=== PATIENT | female | born 1960 | race Caucasian/White ===

== ENCOUNTER 2019-12-21 00:34 | Observation (INO) | payer OTHER, SELFPAY ==
[2019-12-21] VITALS (15 sets, daily range): BP systolic 97–139; BP diastolic 45–70; PULSE 54–116; RESP 11–20; TEMP 36.1–36.8; O2SAT 98–100; BMI 24.3; BMI 23.8
--- NOTE | ~2019-12-21 | XR_ITS ---
EXAMINATION: XR fluoroscopy no charge DATE: 12/21/2019 13:15 INDICATION: Right ureteral stone. TECHNIQUE: 3 intraoperative fluoroscopic views of the abdomen and pelvis were obtained. I was not pre sent. Fluoroscopy exposure time was 17 seconds. COMPARISON: CT abdomen and pelvis 12/21/2019 FINDINGS: There are no dilated loops of bowel. There is no visible urolithiasis. IMPRESSION: 1. No visible urolithiasis. Reviewed, dictated and finalized at location A. IMPRESSION: 1. No visible urolithiasis.
--- NOTE | ~2019-12-21 | CT_ITS ---
EXAMINATION: CT abdomen pelvis wo con EXAM DATE: 12/21/2019 01:12 INDICATION: Right flank pain, 4 days. Nausea. Hematuria. History kidney stones. TECHNIQUE: Spiral CT of the abdomen and pelvis was performed without contrast. Axial, coronal and sag ittal images were reviewed. The dose-length product (DLP) for this examination was 171.51 mGy-cm. T he exposure was tailored according to patient size (auto mA exposure control), and iterative reconstr uction (ASIR) was used as additional dose reduction technique. Comparison is made to prior examinatio n from 02/25/2007. FINDINGS: There is a 5 mm stone in the distal aspect of the right ureter with mild right-sided obstru ctive nephropathy. There is a punctate stone within each kidney. The uterus is anteverted and morpho logically normal. The bladder is undistended at time of imaging. The liver, spleen, adrenal glands and pancreas are unremarkable. Gallbladder is unremarkable. No biliary obstruction. There is no r etroperitoneal or pelvic lymphadenopathy. The appendix is normal. There is mild sigmoid colonic diverticulosis. There is no adjacent inflammat ory change to suggest diverticulitis. There is small to moderate-sized gastroesophageal hiatal hernia . There is expected amount of colonic stool. No free intraperitoneal gas. The heart is normal in size. There are no pericardial or pleural effusions. The lung bases are unremarkable. Chronic rig ht L5 spondylolysis with 3 mm anterolisthesis L5 on S1. There are no osteoblastic or osteolytic lesio ns identified. IMPRESSION: 1. Right distal ureteral 5 mm stone, mild obstructive nephropathy. 2. Punctate bilateral nephrolithiasis. 3. Mild colonic diverticulosis. 4. Small to moderate hiatal hernia. Reviewed, dictated and finalized at location A.
--- NOTE | 2019-12-21 00:51 | ED.ABDPAIN ---
HPI - Abdominal Pain General Chief Complaint: Abdominal Pain Stated Complaint: abd pain Time Seen by Provider: 12/21/19 00:50 History of Present Illness HPI narrative: Right flank/RLQ pain for a few days. Worsening in severity. Now radiating to the back as well. Associated with dysuria, frequency, nausea. She has had past kidney stones. This is similar, but not exactly the same. She sees Dr. Merritt. Related Data Home Medications Medication Instructions Recorded Confirmed cyclosporine [Restasis] OPHTHALMIC (EYE) BID 12/21/19 gabapentin 300 mg PO HS 12/21/19 Allergies Allergy/AdvReac Type Severity Reaction Status Date / Time grass pollen Allergy Unknown Itching Verified 12/21/19 03:14 house dust Allergy Unknown Itching Verified 12/21/19 03:14 No Known Allergies Allergy Verified 12/21/19 03:14 Review of Systems Review of Systems: All systems reviewed & are unremarkable except as noted in HPI and below Constitutional: Constitutional: Denies chills and Denies fever(s) Cardiovascular: Cardiovascular: Denies chest pain Respiratory: Respiratory: Denies dyspnea Gastrointestinal: Gastrointestinal: Reports abdominal pain, Denies constipation, Denies diarrhea, Reports nausea and Denies vomiting Genitourinary: Genitourinary: Reports nocturia, Reports dysuria and Reports flank pain Musculoskeletal: Musculoskeletal: Reports back pain Neurologic: Denies dizziness and Denies weakness [facility] Family History Family History Other Carcinoma of colon Family history of hypercholesterolemia Family history of kidney disease Family history of lung cancer Family history of malignant neoplasm Family history of osteoporosis Social History Social History Smoking status: Never smoker Alcohol intake: current Gender identity (if verbalized by the patient): Female Exam Const: General: healthy appearing, no acute distress and alert Orientation/consciousness: patient oriented x3 HENMT: Head: normal to inspection Neck: Neck: normal visual inspection and no lymphadenopathy Chest: Chest palpation & inspection: no tenderness Resp: Effort & Inspection: normal respiratory effort Auscultation: clear to auscultation bilaterally, no rales, no rhonchi and no wheezes Cardio: Jugular venous distension: no JVD Rate: regular rate Rhythm: regular rhythm Heart sounds: no murmurs GI: Inspection: non-distended GI Palp: Yes Soft to palpation : General: Yes Bladder palpation abnormal tender Skin: General skin exam: normal color Neuro: General: patient oriented x3 and moves all extremities Speech: normal speech Extrem: General: no edema Psych: Appearance: well kempt Affect: normal affect Course Vital Signs Vital signs: Vital Signs Temperature 36.3 C L 12/21/19 00:35 Pulse Rate 79 12/21/19 00:35 Respiratory Rate 19 12/21/19 00:35 Blood Pressure 139/65 12/21/19 00:35 Pulse Oximetry 100 12/21/19 00:35 Temperature 36.3 C L 12/21/19 00:35 Pulse Rate 60 12/21/19 03:00 Respiratory Rate 16 12/21/19 03:00 Blood Pressure 120/69 12/21/19 03:00 Pulse Oximetry 100 12/21/19 03:00 MDM - Abdominal Pain MDM Narrative Medical decision making narrative: She has obstructing stone on the right with infection. Case discussed with Dr. Merritt. He will admit and possibly take to the OR tomorrow. Medical Records Attestation: I reviewed the patient's medical records. Lab Data Attestation: I reviewed the patient's lab results. Result diagrams: 12/21/19 00:56 12/21/19 00:56 Labs: Lab Results 12/21/19 12/21/19 12/21/19 Range/Units 00:56 00:56 00:56 WBC 11.0 H (4.5-10.0) K/mm3 RBC 4.80 (4.2-5.4) M/mm3 Hgb 14.0 (12.0-15.0) g/dL Hct 42.4 (37.0-47.0) % MCV 88.3 (80-100) fl MCH 29.2 (26-34) pg MCHC 33.0 (32-36) g/
[2019-12-21 01:09] LABS: Basophils Absolute Auto 0.1 K/mm3 (0.0-0.1); Basophils Percent Auto 0.5 % (0.2-1.2); Eosinophils Absolute Auto 0.3 K/mm3 (0-0.3); Eosinophils Percent Auto 2.8 % (0-4.4); Hematocrit 42.4 % (37.0-47.0); Immature Granulocyte Absolute 0.04 K/mm3 (0.00-0.031); Immature Granulocyte Percent A 0.4 % (0-0.5); Lymphocytes Absolute Auto 1.81 K/mm3 (0.9-3.2); Lymphocytes Percent Auto 16.4 % (18.3-44.2); Mean Corpuscular Hemoglobin 29.2 pg (26-34); Mean Corpuscular Volume 88.3 fl (80-100); Mean Platelet Volume 10.3 fl (7.4-10.4); Monocytes Absolute Auto 1.1 K/mm3 (0.1-0.6); Monocytes Percent Auto 9.7 % (2.6-8.5); Neutrophils Absolute Auto 7.7 K/mm3 (1.3-6.7); Neutrophils Percent Auto 70.2 % (45.5-73.1); Platelet Count Result 306 k/mm3 (150-375); Red Cell Distribution Width 13.2 % (11.5-14.5)
[2019-12-21 01:19] LABS: Alanine Aminotransferase 15 U/L (4-35); Alkaline Phosphatase 77 U/L (38-126); Anion Gap 10.7 mmol/L (7-16); Aspartate Amino Transferase 22 U/L (14-36); Bilirubin,Total 0.4 mg/dL (0.2-1.3); Blood Urea Nitrogen 11 mg/dL (7-17); Calcium 8.7 mg/dL (8.4-10.2); Carbon Dioxide 25 mmol/L (22-30); Chloride 105 mmol/L (98-107); Estimated CRCL calculation 45 ml/min; Estimated Glomerular Filt Rate 56; Glucose 99 mg/dL (65-105); Lipase 115 U/L (23-300); Potassium 3.7 mmol/L (3.4-5.0); Sodium 137 mmol/L (137-145)
[2019-12-21] MEDS: SODIUM CHLORIDE 0.9% IV 1,000 ML 999 ML IV CONT (01:22)
[2019-12-21] MEDS: ONDANSETRON INJ 4 MG/2 ML VIAL IV PUSH ×2 (01:22→15:16)
[2019-12-21 01:37] LABS: Add Urine Microscopic? YES; Appearance Urine Clear (Clear); Bilirubin Urine Negative (Negative); Blood Urine Negative (Negative); Calcium Oxalate Crystals Urine Present /hpf; Color Urine Amber (Yellow); Glucose Urine UA Negative (Negative); Ketones Urine Negative (Negative); Leukocyte Esterase Ur Trace LEU/UL (Negative); Mucus Urine Rare /lpf; Nitrate Urine Positive (Negative); Protein Urine 2+ mg/dL (Negative); RBC Urine 0-2 /hpf (0-2); Specific Grav Ur 1.024 (1.001-1.035); Squamous Epithelial Cell Urine Moderate /hpf (Few); WBC Urine 51-75 /hpf
--- NOTE | 2019-12-21 04:23 | ADMGEN ---
This patient, Misty Hayward, was admitted to 3 [facility] Surg Room 319-01. Patient/family oriented to hospital policies and general routines including ID bracelet, bed and alarms, visiting hours, pain management, procedures, bathroom and other care routines, personal items, smoking policy, room service/diet, and visiting hours. Valuables list has been completed. Information on how to activate the Rapid Response Team has been discussed. Patient/Family are encouraged to report perceived risks to care and to ask questions if they do not understand what they are told or what they should do.
[2019-12-21] MEDS: LACTATED RINGERS 1,000 ML 150 ML IV CONT ×3 (04:43→21:09)
--- NOTE | 2019-12-21 09:39 | WPDURCON ---
Assessment and Plan Assessment and plan (1) Hydronephrosis with urinary obstruction due to ureteral calculus: Code(s): N13.2 - Hydronephrosis with renal and ureteral calculous obstruction Status: Acute Assessment and Plan: Keep NPO. Obtain Consent: CYstoscopy, right ureteroscopy with stent placement, possible stone extraction, retrograde pyelogram, possible holmium laser. Go to OR this afternoon. Will likely just place stent d/t UTI, then have a ureteroscopy with stone extraction in a few weeks once infection is cleared. (2) UTI (urinary tract infection): Code(s): N39.0 - Urinary tract infection, site not specified Status: Acute Assessment and Plan: Continue IV antibiotics, tailor to urine culture. Urology Consult Note HPI Date Seen: 12/21/19 Requesting Physician: Enmanuel Merritt MD Primary Care Provider: Don Reina MD Consult Narrative Narrative: Misty Hayward is a 59 year old female who presented to the ER early this morning with worsening right lower quadrant pain, and right flank pain. She also reports having nausea, urinary frequency and tea colored urine, since Thursday evening. She denies dysuria, gross hematuria or fever/chills. She made an appointment with her PCP yesterday and thought she had a UTI, but the pain got more severe last night landing her in the ER. She has a WBC of 11.0 and creatinine of 1.00. Her UA is positive for nitrites and her culture is pending. She is afebrile at this time. She has a history of kidney stones and was treated with an ESWL by Dr. Merritt in the past. Her CT scan shows a right distal 5mm stone as well as punctate bilateral renal stones. Review of Systems Cardiovascular: Cardiovascular: Denies chest pain Respiratory: Respiratory: Reports no additional respiratory complaints Gastrointestinal: Gastrointestinal: Reports abdominal pain, Reports nausea and Denies vomiting Genitourinary: Genitourinary: Reports hematuria, Reports nocturia, Denies dysuria, Reports flank pain, Denies urinary hesitancy and Denies urinary urgency [facility] Family History Family History Other Carcinoma of colon Family history of hypercholesterolemia Family history of kidney disease Family history of lung cancer Family history of malignant neoplasm Family history of osteoporosis Social History Social History Smoking status: Never smoker Alcohol intake: current Drinks per week: 3 Substance use: never Gender identity (if verbalized by the patient): Female Spiritual care concerns: No Meds Home Medications and Allergies Home Medications Medication Instructions Recorded Confirmed Type albuterol sulfate [ProAir HFA] 2 inhalation INHALATION Q4H PRN 12/21/19 12/21/19 History cyclosporine [Restasis] 1 drp OPHTHALMIC (EYE) BID 12/21/19 12/21/19 History estradiol-norethindrone acet 1 tablet PO DAILY 12/21/19 12/21/19 History gabapentin 300 mg PO HS 12/21/19 12/21/19 History Allergies Allergy/AdvReac Type Severity Reaction Status Date / Time grass pollen Allergy Unknown Itching Verified 12/21/19 03:14 house dust Allergy Unknown Itching Verified 12/21/19 03:14 No Known Allergies Allergy Verified 12/21/19 03:14 Vital Signs Vital Signs - 24 hr 12/21/19 00:35 12/21/19 02:00 12/21/19 03:00 Temperature 97.3 F L Pulse Rate 79 71 60 Respiratory Rate 19 18 16 Blood Pressure 139/65 127/70 120/69 Pulse Oximetry 100 100 100 12/21/19 04:10 12/21/19 06:00 Temperature 97.9 F 97.4 F L Pulse Rate 79 62 Respiratory Rate 20 16 Blood Pressure 116/59 L 97/48 L Pulse Oximetry 100 99 Exam Resp: Effort & Inspection: normal respiratory effort Cardio: Rate: regular rate GI: GI Palp: Yes Soft to palpation and Yes Tenderness to palpation present (GI) (RLQ) : General: Yes CVA tenderness on the right Extrem: Genera
--- NOTE | 2019-12-21 10:50 | WPDANESEPPF ---
Anes - Initial Pre Proc Eval Procedure: Operation Date: 12/21/19 13:30 Proposed Procedures p Cystoscopy, Right Ureteroscopy, Right Stone Extraction(Right) - Enmanuel Merritt MD Date/Time: 12/21/19 10:50 Surgeon: Enmanuel Merritt MD Pre Op Diagnosis: kidney stone, UTI Patient Data Age: 59 Gender: F Height: 1.63 m Weight: 63 kg Last Vital Signs Temp 36.3 C L 12/21/19 06:00 Pulse 62 12/21/19 06:00 Resp 16 12/21/19 06:00 BP 97/48 L 12/21/19 06:00 Pulse Ox 99 12/21/19 06:00 Allergies Allergy/AdvReac Type Severity Reaction Status Date / Time grass pollen Allergy Unknown Itching Verified 12/21/19 03:14 house dust Allergy Unknown Itching Verified 12/21/19 03:14 No Known Allergies Allergy Verified 12/21/19 03:14 Home Medications Medication Instructions Recorded Confirmed Type albuterol sulfate [ProAir HFA] 2 inhalation INHALATION Q4H PRN 12/21/19 12/21/19 History cyclosporine [Restasis] 1 drp OPHTHALMIC (EYE) BID 12/21/19 12/21/19 History estradiol-norethindrone acet 1 tablet PO DAILY 12/21/19 12/21/19 History gabapentin 300 mg PO HS 12/21/19 12/21/19 History Laboratory Tests 12/21/19 12/21/19 12/21/19 00:56 00:56 00:56 WBC 11.0 K/mm3 H K/mm3 (4.5-10.0) RBC 4.80 M/mm3 M/mm3 (4.2-5.4) Hgb 14.0 g/dL g/dL (12.0-15.0) Hct 42.4 % % (37.0-47.0) MCV 88.3 fl fl (80-100) MCH 29.2 pg pg (26-34) MCHC 33.0 g/dl g/dl (32-36) RDW 13.2 % % (11.5-14.5) Plt Count 306 k/mm3 k/mm3 (150-375) MPV 10.3 fl fl (7.4-10.4) Immature Gran % (Auto) 0.4 % % (0-0.5) Neut % (Auto) 70.2 % % (45.5-73.1) Lymph % (Auto) 16.4 % L % (18.3-44.2) [place] % (Auto) 9.7 % H % (2.6-8.5) Eos % (Auto) 2.8 % % (0-4.4) Baso % (Auto) 0.5 % % (0.2-1.2) Lymph # (Auto) 1.81 K/mm3 K/mm3 (0.9-3.2) [place] # (Auto) 1.1 K/mm3 H K/mm3 (0.1-0.6) Eos # (Auto) 0.3 K/mm3 K/mm3 (0-0.3) Baso # (Auto) 0.1 K/mm3 K/mm3 (0.0-0.1) Abs Immat Gran (auto) 0.04 K/mm3 H K/mm3 (0.00-0.031) Absolute Neuts (auto) 7.7 K/mm3 H K/mm3 (1.3-6.7) Absolute Nucleated RBC 0.0 K/mm3 K/mm3 (0.0-0.012) Nucleated RBC % 0.0 % % (0.0-0.2) Sodium 137 mmol/L mmol/L (137-145) Potassium 3.7 mmol/L mmol/L (3.4-5.0) Chloride 105 mmol/L mmol/L (98-107) Carbon Dioxide 25 mmol/L mmol/L (22-30) Anion Gap 10.7 mmol/L mmol/L (7-16) BUN 11 mg/dL mg/dL (7-17) Creatinine 1.00 mg/dL mg/dL (0.7-1.0) Estim Creat Clear Calc 45 ml/min ml/min Estimated GFR 56 L (59 - ) Glucose 99 mg/dL mg/dL (65-105) Calcium 8.7 mg/dL mg/dL (8.4-10.2) Total Bilirubin 0.4 mg/dL mg/dL (0.2-1.3) AST 22 U/L U/L (14-36) ALT 15 U/L U/L (4-35) Alkaline Phosphatase 77 U/L U/L (38-126) Total Protein 7.0 g/dL g/dL (6.3-8.2) Albumin 4.0 g/dL g/dL (3.5-5.1) Lipase 115 U/L U/L (23-300) Urine Color Margarette (Yellow) Urine Appearance Clear (Clear) Urine pH 5.0 (5.0-9.0) Ur Specific [place] 1.024 (1.001-1.035) Urine Protein 2+ mg/dL H mg/dL (Negative) Urine Glucose (UA) Negative mg/dL mg/dL (Negative) Urine Ketones Negative mg/dL mg/dL (Negative) Ur Blood (Man) Negative (Negative) Urine Nitrate Positive H (Negative) Urine Bilirubin Negative (Negative) Urine Urobilinogen 4.0 mg/dL H mg/dL (<2.0) Leukocyte Esterase Rfl Trace CHIARA/UL H CHIARA/UL (Negative) Urine RBC 0-2 /hpf /hpf (0-2) Urine WBC 51-75 /hpf H /hpf Ur Squamous Epith Cells Moderate /hpf H /hpf (Few) Mykel
--- NOTE | 2019-12-21 11:56 | PC.NURSE ---
to OR per stretcher. at bedside. report given to Zandra in OR>
[2019-12-21] MEDS: LACTATED RINGERS 1,000 ML 30 ML IV CONT ×2 (12:17→13:19)
[2019-12-21] MEDS: LIDOCAINE HCL 2% GEL UROJET 10 ML PKG MUCOUS MEM (13:09)
--- NOTE | 2019-12-21 13:24 | P.OP_ITS ---
Procedure Note - Detailed Date of procedure: 12/21/19 Pre-op diagnosis: kidney stone, UTI Post-op diagnosis: same Procedure performed: Cystoscopy with right ureteroscopy and stone extraction Description of procedure: The patient was brought to the operative suite where she is prepped and draped in a routine sterile fashion while in the dorsal lithotomy position after the uneventful induction of a general LMA anesthetic. A 19F rigid cystoscope was placed in the bladder. The patient had no evidence of urethral stricture or bladder neck contracture. The bladder mucosa was endoscopically normal without hyperemia or neoplasm. There was a single, orthotopic ureteral orifice bilaterally. A 0.035 glidewire was advanced into the right renal pelvis under fluoroscopy. The distal ureter was dilated with an 8F/10F ureteral dilator. Ureteroscopy was undertaken with a short, tapered, semi-rigid ureteroscope and the stone was extracted with ease using a 1.9F Escape disposable stone basket. Due to the ease of this manipulation I opted not to place a ureteral stent. The patient's bladder was emptied and was taken to the recovery room having tolerated this procedure well. Anesthesia: GLMA Surgeon: Enmanuel Merritt MD Auto Body Mechanic Apprentice: None Estimated blood loss (mL): 0 Drains: No Packing: No Pathology: yes Complications: No immediate complications Condition: stable Disposition: PACU
--- NOTE | 2019-12-21 14:14 | PC.NURSE ---
patient returning to room after surgery.
[2019-12-21] MEDS: TAMSULOSIN HCL 0.4 MG CAPSULE PO (16:35)
[2019-12-21] MEDS: ACETAMINOPHEN 325 MG TABLET 650 MG PO (21:10)
[2019-12-22 02:00] VITALS: BP 91/40; PULSE 51; RESP 16; TEMP 36.5; O2SAT 97
[2019-12-22] MEDS: ACETAMINOPHEN 325 MG TABLET 650 MG PO (03:40)
[2019-12-22] MEDS: LACTATED RINGERS 1,000 ML 150 ML IV CONT (04:17)
[2019-12-22 06:00] VITALS: BP 92/32; PULSE 63; RESP 18; TEMP 36.4; O2SAT 100
--- NOTE | 2019-12-22 07:11 | PM.DS ---
DS: Admitting Diagnosis Admitting Diagnosis Admitting Diagnosis: Hydronephrosis with renal and ureteral calculous obstruction DS: Discharge Diagnosis Discharge Diagnosis (1) Hydronephrosis with urinary obstruction due to ureteral calculus: Code(s): N13.2 - Hydronephrosis with renal and ureteral calculous obstruction Status: Acute DS: Summary Time Spent with Patient Time attestation: Total time spent providing and/or coordinating discharge services: 15 min. Admitted thru ER with pain, n/v resulting from obstructing right distal ureteral stone. Next day she underwent an endoscopic stone extraction. Post-op n/v necissitated an additional overnight stay. The following morning she was feeling perfectly fine. She had no fever/chills Exam Const: General: no acute distress Resp: Effort & Inspection: normal respiratory effort GI: Inspection: non-distended GI Palp: No abdominal tenderness and No Guarding due to palpation present (GI) Auscultation: normal bowel sounds DS: Data Data Completed and Pending Completed studies during hospitalization: Pending at discharge 12/21/19 13:10 Surgical [PTH] Routine Discharge Plan Discharge Attending physician on discharge: Enmanuel Merritt Discharging Clinician: Enmanuel Merritt Anticipated Discharge Date/Time: 12/22/19 07:09 Patient Disposition: Home, Self-Care Activity: unlimited Diet: as tolerated Discharge Instructions: 1) Activity: no driving or important decisions x24 hours. 2) Diet: resume your normal, pre-admission diet. 3) Follow-up: 4-6 weeks / call for appointment ([phone]). Patient Instructions: Antibiotic Form Stand Alone Forms: General Discharge Information Follow-up/Referrals: Enmanuel Merritt MD [Physician] - Discharge Medications: New sulfamethoxazole-trimethoprim 800-160 mg tablet 1 tablet PO Q12H Qty: 10 RF: 0 Continued gabapentin 300 mg Capsule 300 mg PO HS RF: 0 Restasis 0.05 % dropperette 1 drp ophthalmic (eye) BID RF: 0 estradiol-norethindrone acet 0.5-0.1 mg tablet 1 tablet PO DAILY RF: 0 albuterol sulfate [ProAir HFA] 90 mcg/actuation HFA aerosol inhaler 2 inhalation INHALATION Q4H PRN (Reason: shortness of breath or wheezing) RF: 0 Date of admission: 12/21/19 02:23 Primary Care Provider: Don Reina Admitting Provider: Enmanuel Merritt Attending physician on admission: Enmanuel Merritt Condition: Stable
[2019-12-22 07:49] VITALS: BP 93/50; PULSE 64; RESP 18; TEMP 36.6; O2SAT 98
== END 2019-12-22 08:18 | disposition home or self-care (01) ==
LOC: ANHED 02:34 → ANH3MEDSUR 03:35
PROVIDERS: Admitting Provider Urology; Emergency Provider Emergency Medicine; PCP Family Medicine; Visit Provider Urology
PROC: (CPT 52352; principal; 2019-12-21 13:30)
DX: N13.2 Hydronephrosis with renal and ureteral calculous obstruction (principal); N39.0 Urinary tract infection, site not specified
CPT/HCPCS: 52352; 36415; 74176; 80053; 81001; 82365; 83690; 85025; 87086; 88300; 96361; 96365; 96375; 96376; 99285; A9270; C1769; G0378; J0696; J1100; J2405; J2704; J3010; J7030; J7120

== ENCOUNTER 2021-01-14 01:05 | Day surgery (SDC) | payer OTHER, SELFPAY ==
[2021-01-02 14:27] VITALS: BMI 24.0
--- NOTE | 2021-01-14 10:47 | WPDANESEPPF ---
Anes - Initial Pre Proc Eval Procedure: Operation Date: 01/14/21 13:30 Proposed Procedures p Esophagogastroduodenoscopy - Leonard Hogan MD Date/Time: 01/14/21 10:47 Surgeon: Leonard Hogan MD Pre Op Diagnosis: dysphagia Patient Data Age: 60 Gender: F Height: 1.63 m Weight: 63.6 kg Allergies Allergy/AdvReac Type Severity Reaction Status Date / Time grass pollen Allergy Unknown Itching Verified 01/14/21 11:54 house dust Allergy Unknown Itching Verified 01/14/21 11:54 Home Medications Medication Instructions Recorded Confirmed Type Restasis 1 drp OPHTHALMIC (EYE) BID 12/21/19 01/02/21 History albuterol sulfate [ProAir HFA] 2 inhalation INHALATION Q4H PRN 12/21/19 01/02/21 History estradiol-norethindrone acet 1 tablet PO DAILY 12/21/19 01/02/21 History gabapentin 300 mg PO HS 12/21/19 01/02/21 History ondansetron HCl 4 mg tablet 4 mg PO Q8H PRN #20 tablet 07/18/20 01/02/21 Rx esomeprazole magnesium 40 mg 40 mg PO DAILY #90 cap 10/17/20 01/02/21 Rx capsule,delayed release oxybutynin chloride 5 mg PO DAILY 01/02/21 01/02/21 History Patient hx anesthesia problems: none Family hx anesthesia problems: none PMFSH Past Medical History Medical History (Updated 01/14/21 @ 10:48 by Ramon Peterson MD) Acute stress reaction Arthritis Asthma Essential tremor GERD (gastroesophageal reflux disease) Mitral valve regurgitation states had echo due to murmur. Unsure of severity but believes mild. Says she notices her heart rate rise as high as 140 on her apple watch and was told it was because of this. PONV (postoperative nausea and vomiting) Family History Family History Other Carcinoma of colon Family history of hypercholesterolemia Family history of kidney disease Family history of lung cancer Family history of malignant neoplasm Family history of osteoporosis Social History Social History Smoking status: Never smoker Alcohol intake: current Drinks per week: 3 Substance use: never Living arrangements: with family Gender identity (if verbalized by the patient): Female Spiritual care concerns: No Anes - Eval Final PreProcedure Day of Procedure 01/14/21 10:47 Patient weight: overweight Heart: regular rate and rhythm Lungs: clear to auscultation and normal air movement Airway: Mallampati scale class II Neurological: alert and oriented Last oral intake: >/= 8 hours ASA classification: III Emergent: no Anesthetic plan: proceed Anesthesia type and monitoring: general GIVS Informed Consent: The patient's anesthetic plan and its attendant risks and benefits were discussed with the patient/family/POA. Questions were solicited and answers provided to the satisfaction of the patient/family/POA.
[2021-01-14 11:56] VITALS: BP 107/53; PULSE 86; RESP 18; TEMP 36.2; O2SAT 97
[2021-01-14] MEDS: LACTATED RINGERS 1,000 ML 150 ML IV CONT (12:03)
--- NOTE | 2021-01-14 13:29 | PM.HPGS ---
History of Present Illness History of Present Illness Consent: Risks, benefits, and alternatives have been discussed and questions answered. Patient agrees to proceed with procedure. Chief complaint: dysphagia Narrative: Misty Hayward is a 60 year old female With dysphagia for solid food. She has been taking Nexium 20 mg once or twice a day for heartburn since early this year. She has history of an esophageal stricture Review of Systems Review of Systems: All systems reviewed & are unremarkable except as noted in HPI and below PMFSH Past Medical History Medical History Acute stress reaction Arthritis Asthma Essential tremor GERD (gastroesophageal reflux disease) Mitral valve regurgitation states had echo due to murmur. Unsure of severity but believes mild. Says she notices her heart rate rise as high as 140 on her apple watch and was told it was because of this. PONV (postoperative nausea and vomiting) Family History Family History Other Carcinoma of colon Family history of hypercholesterolemia Family history of kidney disease Family history of lung cancer Family history of malignant neoplasm Family history of osteoporosis Social History Social History Smoking status: Never smoker Alcohol intake: current Drinks per week: 3 Substance use: never Living arrangements: with family Gender identity (if verbalized by the patient): Female Spiritual care concerns: No Meds Home Medications and Allergies Home Medications Medication Instructions Recorded Confirmed Type Restasis 1 drp OPHTHALMIC (EYE) BID 12/21/19 01/02/21 History albuterol sulfate [ProAir HFA] 2 inhalation INHALATION Q4H PRN 12/21/19 01/02/21 History estradiol-norethindrone acet 1 tablet PO DAILY 12/21/19 01/02/21 History gabapentin 300 mg PO HS 12/21/19 01/02/21 History ondansetron HCl 4 mg tablet 4 mg PO Q8H PRN #20 tablet 07/18/20 01/02/21 Rx esomeprazole magnesium 40 mg 40 mg PO DAILY #90 cap 10/17/20 01/02/21 Rx capsule,delayed release oxybutynin chloride 5 mg PO DAILY 01/02/21 01/02/21 History Allergies Allergy/AdvReac Type Severity Reaction Status Date / Time grass pollen Allergy Unknown Itching Verified 01/14/21 11:54 house dust Allergy Unknown Itching Verified 01/14/21 11:54 Vital Signs Vital Signs - 24 hr 01/14/21 11:56 Temperature 36.2 C L Pulse Rate 86 Respiratory Rate 18 Blood Pressure 107/53 L Pulse Oximetry 97 Exam Const: General: alert Orientation/consciousness: patient oriented x3 Resp: Auscultation: clear to auscultation bilaterally Cardio: Rhythm: regular rhythm GI: GI Palp: Yes Soft to palpation and No Tenderness to palpation present (GI) Neuro: General: patient oriented x3 Assessment and Plan Assessment and plan (1) Dysphagia: Code(s): R13.10 - Dysphagia, unspecified Status: Acute Assessment and Plan: EGD with possible biopsy or dilatation or cautery.
[2021-01-14] MEDS: BENZOCAINE (*SP) 60 ML SPRAY CAN (HURRICAINE) 1 SPRAY MUCOUS MEM (13:42)
[2021-01-14 13:55] VITALS: BP 104/51; PULSE 79; RESP 24; O2SAT 98
[2021-01-14 14:05] VITALS: BP 108/61; PULSE 66; RESP 20; O2SAT 100
[2021-01-14 14:15] VITALS: BP 112/54; PULSE 65; RESP 19; O2SAT 100
== END 2021-01-14 14:34 | disposition home or self-care (01) ==
PROVIDERS: PCP Family Medicine; Visit Provider Internal Medicine Gastroenterology
PROC: 0DJ08ZZ Inspection of Upper Intestinal Tract, Via Natural or Artificial Opening Endoscopic (ICD-10-PCS; CPT 43235; principal; 2021-01-14 13:30)
DX: R13.10 Dysphagia, unspecified (principal); K22.2 Esophageal obstruction; K44.9 Diaphragmatic hernia without obstruction or gangrene; K29.50 Unspecified chronic gastritis without bleeding; K20.80 Other esophagitis without bleeding; M19.90 Unspecified osteoarthritis, unspecified site; J45.909 Unspecified asthma, uncomplicated; R25.1 Tremor, unspecified; I34.0 Nonrheumatic mitral (valve) insufficiency; Z79.51 Long term (current) use of inhaled steroids; Z87.19 Personal history of other diseases of the digestive system
CPT/HCPCS: 43239; 43249; 88305; C1726; J2001; J2704; J7120

== ENCOUNTER → 2021-03-12 09:07 | Outpatient (CLI) | payer OTHER, SELFPAY ==
--- NOTE | ~2021-03-12 | MR_ITS ---
EXAMINATION: MR hip LT wo con DATE: 03/12/2021 10:03 INDICATION: Left hip pain TECHNIQUE: Magnetic resonance imaging (MRI) of the left hip was performed without intravenous contra st. Sequences included full-field axial PD-weighted FS FSE and T1-weighted FSE, coronal of the pelvis with PD-weighted FS FSE, small field of view of the left hip with axial PD-weighted FS FSE, sagitta l PD-weighted FS FSE and coronal PD weighted FS FSE. Additional radial T1-weighted FGR oriented ortho gonal to the acetabular rim were obtained for evaluation of the labrum. COMPARISON: None FINDINGS: Bones/labrum/cartilage: Alignment is normal. No fracture, avascular necrosis or pathologic marrow replacing process. Chondro labral delamination with tear extending along the base of the anterosuperior to superior lateral left acetabular labrum. Mild left hip osteoarthritis with mild partial-thickness cartilage loss most prom inent posterior inferiorly and at the anterosuperior acetabulum. Mild lower lumbar spondylosis. Fluid: Symmetric physiologic amount of fluid within both hip joints. Mild bilateral subgluteus medius and mi nimus bursitis. Soft tissues: Normal and symmetric muscle bulk and signal in the pelvis and visualized proximal thighs. Bilateral g luteus minimus tendinopathy without discrete tear, moderate on the left and mild on the right. The il iopsoas tendons, proximal hamstring tendons and remaining gluteal tendons are normal. Limited evaluat ion of visceral organs of the pelvis is unremarkable. No pathologically enlarged pelvic/inguinal lym phadenopathy. IMPRESSION: 1. Mild bilateral subgluteus medius and minimus bursitis with moderate left-sided and mild right-side d gluteus minimus tendinopathy without discrete tears. 2. Mild left hip osteoarthritis with tear at the anterosuperior to superolateral left acetabular labr um. Reviewed, dictated and finalized at location A. IMPRESSION: 1. Mild bilateral subgluteus medius and minimus bursitis with moderate left-jean-paul ed and mild right-sided gluteus minimus tendinopathy without discrete tears. 2. Mild left hip osteoarthritis with tear at the anterosuperior to superolatera l left acetabular labrum.
== END ==
PROVIDERS: PCP Family Medicine; Visit Provider Family Medicine
DX: M16.12 Unilateral primary osteoarthritis, left hip (principal)
CPT/HCPCS: 73721

== ENCOUNTER 2021-05-08 10:33 | Outpatient (CLI) | payer OTHER, SELFPAY ==
--- NOTE | ~2021-05-08 | XR_ITS ---
EXAMINATION: XR lg joint inject/asp w image DATE: 05/08/2021 11:45 INDICATION: Left hip pain. TECHNIQUE: A time-out was performed to verify the patient's name, date of , and procedure to b e performed. The procedure including the risks, benefits, and alternatives was discussed with the pat ient. Risks discussed included bleeding and infection. The patient understood the risks and agreed to proceed. The skin overlying the left hip joint was prepped and draped in usual sterile fashion. An esthetic was administered with 1% lidocaine subcutaneously. A 22 G needle was advanced under fluoros copic guidance into the joint. Injection of 1 mL of Omnipaque 240 confirmed intra-articular position of the needle. Subsequently, injectate consisting of 5 mL 1% lidocaine and 2 mL 10 mg/mL Kenalog wa s instilled. The needle was removed and the entry site was cleaned and dressed. There were no immed iate complications. Fluoroscopy exposure time was 0.0 minutes. The total number of images was 2. FINDINGS: Real-time fluoroscopy demonstrates the needle in the left hip joint. Patient's pain prior t o procedure:7/10. Patient's pain following the procedure: 0/10. IMPRESSION: 1. Fluoroscopy guided left hip joint injection of local anesthetic and steroid with decrease in the p atient's presenting pain. Reviewed, dictated and finalized at location A. NICIAN SUPPORT ENGINEER IMPRESSION: 1. Fluoroscopy guided left hip joint injection of local anesthetic and steroid with decrease in the patient's presenting pain.
== END 2021-05-08 10:34 | disposition home or self-care (01) ==
LOC: ANHIMG 10:37
PROVIDERS: PCP Family Medicine; Visit Provider Orthopaedic Surgery
DX: M25.552 Pain in left hip (principal)
CPT/HCPCS: 20610; 77002; J3301; Q9966

== ENCOUNTER 2021-05-13 11:00 | Outpatient (RCR) | payer OTHER, SELFPAY ==
--- NOTE | 2021-04-08 16:41 | PTOPEVAL ---
PHYSICAL THERAPY EVALUATION AND PLAN OF CARE Thank you for referring Misty Hayward to [facility].? The patient is scheduled to be seen for therapy? 1-2x/week for 4-8 weeks. Please review, sign, date and return this plan of care VIANNEY. I agree with and certify that the following plan of care is medically necessary. Referring Physician Date Attending Provider: Pedro Luis Adler MD Evaluation Outpatient Past Medical History Neurological History Hx Neurological Disorders No Significant History Cardiovascular History Hx Other Cardiac Disorders Yes: MITRAL VALVE REGURGITATION Respiratory History Hx Asthma Yes: SEASONAL Gastrointestinal History Hx Hernia Yes: HIATAL Genitourinary History Hx Kidney Stones Yes: ESWL 2019 Hx Other Genitourinary Disorders Yes: BLADDER SLING SURGERY Musculoskeletal History Hx Back Pain Yes: OSTEOARTHRITIS Reproductive History Hx Post Menopausal Yes Diagnosis low back pain, hip pain Onset 6months Subjective Information symptoms started several Query Text:As Reported By Patient/ months ago. 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 she is not getting pain in the back of the left hip. Has cut back on walking (used to walk 3-4miles) and has cut back on that. She has a difficult time carrying her young grandchild and that bothers the hip on the left. Getting into and out of the car is painful. Self Report Pain Assessment Left Hip(s) Reported Pain Level 5 Pain Description Aching Radicular Pain Location pain in left groin and will radiate down the back of the leg Pain Frequency Acute,Continuous Lowest Pain Intensity 3 Greatest Pain Intensity 7 Pain Aggravating Factors Bending,Stair Climbing,Walking ,Weight Bearing/Standing Pain Behaviors None Pain Score Pain Score 5: Self Report Interventions Used Interventions Used By Clinicians Exercise Cervical and Lumbar ROM Lumbar ROM Lumbar Flexion (0-90) 40 Query Text:Active in Degrees Lumbar Flexion Active Knee Query Text:Hands to: Lumbar Extension (
--- NOTE | 2021-05-13 11:23 | PTOPEVAL ---
PHYSICAL THERAPY DISCHARGE NOTE Thank you for referring Misty Hayward to [facility].? Please review, sign, date and return this plan of care VIANNEY. I agree with and certify that the following plan of care is medically necessary. Referring Physician Date Attending Provider: Pedro Luis Adler MD Discharge Diagnosis low back pain, hip pain Onset 6months Subjective Information States that she had a Query Text:As Reported By Patient/ cortisone injection in the Family left hip last week and she feels great. Pain is gone but she can tell that the leg is weaker and tires easily. Self Report Pain Assessment Left Hip(s) Reported Pain Level 0 Pain Description Aching Pain Frequency Acute,Continuous Pain Aggravating Factors Bending,Stair Climbing,Walking ,Weight Bearing/Standing Pain Behaviors None Pain Score Pain Score 0: Self Report Interventions Used Interventions Used By Clinicians Exercise Lower Extremity Range of Motion General Lower Extremity Range of Motion Gross Lower Extremity Range of Motion well preserved hip internal Comments rotation, decreased hip external rotation due to tightness of the left hip Lower Extremity Muscle Strength Testing Hip Strength Left Hip Flexion Strength 5 Normal Hip Extension Strength 4 Good Hip Abduction Strength 4 Good Hip Adduction Strength 5 Normal Hip Medial Rotation Strength 4+ Good + Hip Lateral Rotation Strength 4+ Good + Knee Strength Bilateral Knee Flexion Strength 5 Normal Knee Extension Strength 5 Normal Muscle Length Testing Muscle Length Testing Two-Joint Hip Flexor Shortened Muscles Short (R) Rectus Femoris,Short (L) Rectus Femoris Piriformis w/Hip Flexion >90 Degrees (R) Moderate Tightness,(L) Moderate Tightness Left Hamstring Length -30 Query Text:(90 - 90 Position) Right Hamstring Length -30 Query Text:(90 - 90 Position) General Exercise General Exercises Side Left Exercise Location hip Exercise Type Active,Resistive,Stabilization ,Stretching Exercise Description discussed HEP and discussed Query Text:Record Sets, Reps, how to preserve the health of Resistance, and Position the right and how to increase strength on the left. -resisted side stepping -single leg standing
== END 2021-05-14 10:02 | disposition home or self-care (01) ==
LOC: ANHPT 11:00
PROVIDERS: PCP Family Medicine; Visit Provider Orthopaedic Surgery
DX: M25.552 Pain in left hip (principal); M25.551 Pain in right hip; M54.50 Low back pain, unspecified
CPT/HCPCS: 97110; 97140; 97162

== ENCOUNTER → 2021-11-28 09:09 | Outpatient (CLI) | payer OTHER, SELFPAY ==
--- NOTE | ~2021-11-28 | XR_ITS ---
EXAMINATION: XR foot RT min 3V DATE: 11/28/2021 10:25 INDICATION: Right foot pain TECHNIQUE: Dorsoplantar, lateral, and 2 oblique views of the right foot were obtained. COMPARISON: None. FINDINGS: There is no fracture, dislocation, or subluxation. There is moderate osteoarthritis of mult iple interphalangeal joints and mild osteoarthritis at the first metatarsophalangeal joint. A posteri or plantar calcaneal enthesophyte is noted. IMPRESSION: 1. No acute osseous abnormality. Reviewed, dictated and finalized at location B.
== END ==
PROVIDERS: PCP Family Medicine; Visit Provider Nurse Practitioner Family
DX: M79.673 Pain in unspecified foot (principal)
CPT/HCPCS: 73630

== ENCOUNTER 2022-06-30 10:47 | Outpatient (CLI) | payer OTHER, SELFPAY ==
--- NOTE | ~2022-06-30 | XR_ITS ---
EXAMINATION: XR lg joint inject/asp w image DATE: 06/30/2022 11:36 INDICATION: Left hip pain. TECHNIQUE: A time-out was performed to verify the patient's name, date of , and procedure to b e performed. The procedure including the risks, benefits, and alternatives was discussed with the pat ient. Risks discussed included bleeding and infection. The patient understood the risks and agreed to proceed. The skin overlying the left hip joint was prepped and draped in usual sterile fashion. An esthetic was administered with 1% lidocaine subcutaneously. A 22 G needle was advanced under fluoros copic guidance into the joint. Subsequently, injectate consisting of 5 mL 1% lidocaine and 2 mL 10 m g/mL Kenalog was instilled. The needle was removed and the entry site was cleaned and dressed. Ther e were no immediate complications. Fluoroscopy exposure time was 0.1 minutes. The total number of harmeet ges was 1. FINDINGS: Real-time fluoroscopy demonstrates the needle in the left hip joint. Patient's pain prior t o procedure:12/01. Patient's pain following the procedure: 09/01. IMPRESSION: 1. Fluoroscopy guided left hip joint injection of local anesthetic and steroid with decrease in the p atient's presenting pain. Reviewed, dictated and finalized at location A. ECTOR WATCH ASSEMBLY IMPRESSION: 1. Fluoroscopy guided left hip joint injection of local anesthetic and steroid with decrease in the patient's presenting pain.
== END 2022-06-30 10:48 | disposition home or self-care (01) ==
PROVIDERS: PCP Family Medicine; Visit Provider Nurse Practitioner
DX: M25.552 Pain in left hip (principal)
CPT/HCPCS: 20610; 77002; J3301

== ENCOUNTER 2023-03-12 07:52 | Outpatient (CLI) | payer OTHER, SELFPAY ==
--- NOTE | ~2023-03-12 | XR_ITS ---
Right Shoulder Technique: AP and scapular Y views were obtained. Clinical History: Pain Findings: No fracture or dislocation is seen. Osseous alignment is anatomic. The glenohumeral and acr omioclavicular joint spaces are preserved. Soft tissues are unremarkable. Impression: Unremarkable right shoulder radiographs. Reviewed, dictated and finalized at [facility]. Impression: Unremarkable right shoulder radiographs.
== END 2023-03-12 07:53 | disposition home or self-care (01) ==
LOC: ANHIMG 07:54
PROVIDERS: PCP Family Medicine; Visit Provider Nurse Practitioner Family
DX: M25.511 Pain in right shoulder (principal)
CPT/HCPCS: 73030

== ENCOUNTER 2023-08-24 17:26 | Outpatient (CLI) | payer OTHER, SELFPAY ==
--- NOTE | ~2023-08-24 | XR_ITS ---
Supine and upright views of the abdomen Clinical history: Back pain Findings: Bowel gas pattern is nonspecific. No evidence for obstruction or free air. No abnormal mass lesion or calcification is seen. Osseous structures are intact. Impression: No significant abnormality is seen. Reviewed, dictated and finalized at [facility]. Impression: No significant abnormality is seen.
== END 2023-08-24 17:27 | disposition home or self-care (01) ==
LOC: ANHIMG 17:28
PROVIDERS: PCP Family Medicine; Visit Provider Nurse Practitioner Family
DX: M54.9 Dorsalgia, unspecified (principal); Z87.442 Personal history of urinary calculi
CPT/HCPCS: 74018

== ENCOUNTER 2023-12-22 10:07 | Emergency (ER) | payer OTHER, SELFPAY ==
--- NOTE | 2023-12-22 10:10 | ED.SKABFB ---
HPI - Skin/Abscess/Foreign Bdy General Chief complaint: Skin/Abscess/Foreign Body Stated complaint: belly rash Time Seen by Provider: 12/22/23 10:09 Source: patient Mode of arrival: ambulatory Limitations: no limitations History of Present Illness HPI narrative: Misty is a 63-year-old female patient presenting to the clinic today with complaints of a rash on her abdomen x2 days. She reports the rash is itchy and burning. Denies any fever, chills, body aches. Related Data Home Medications Medication Instructions Recorded Confirmed estradiol-norethindrone acet 0.5 1 tablet PO DAILY 12/21/19 12/22/23 mg-0.1 mg tablet gabapentin 300 mg capsule 300 mg PO TID 02/18/21 12/22/23 trospium 20 mg tablet 20 mg PO BID 06/16/22 12/22/23 levothyroxine 50 mcg capsule 50 mcg PO .QD 07/21/22 12/22/23 lifitegrast 5 % eye drops in a 1 drp EACH EYE BID 11/24/22 12/22/23 dropperette (Xiidra) Allergies Allergy/AdvReac Type Severity Reaction Status Date / Time No Known Allergies Allergy Verified 12/22/23 10:24 Review of Systems Review of Systems: Pertinent positives per HPI. Patient denies any fever, chills, headache, visual changes, dizziness, cough, runny nose, sore throat, shortness of breath, chest pain, palpitations, nausea, vomiting, diarrhea, constipation, abdominal pain, or any urinary issues. [facility] Past Medical History Medical History Acute stress reaction Arthralgia Arthritis Asthma BMI 25.0-25.9,adult Bone spur of foot Bursitis of left hip Chronic pain Dysphagia Essential tremor Foot pain GERD (gastroesophageal reflux disease) Hair loss disorder Hypothyroidism (acquired) Mitral valve regurgitation states had echo due to murmur. Unsure of severity but believes mild. Says she notices her heart rate rise as high as 140 on her apple watch and was told it was because of this. Pain in left hip Piriformis syndrome of left side PONV (postoperative nausea and vomiting) Right shoulder pain Tear of left acetabular labrum Family History Family History Other Carcinoma of colon Family history of hypercholesterolemia Family history of kidney disease Family history of lung cancer Family history of malignant neoplasm Family history of osteoporosis Social History Social History Smoking status: Never smoker Alcohol intake: current Drinks per week: 3 Substance use: never Do You Feel Safe in your Home?: Yes Lack of Transportation: No Lack of Food: Never True Current Housing: I Have Housing Concerned About Future Housing: No Difficulty Paying Gas/Electric Bills: No Difficulty Paying for Meds: No Currently Unemployed: No Education: Trade/Vocational Certificate Difficulty w/ Childcare or Family Care: No Living arrangements: with family Occupation/Education: occupation 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 There is no relevant family history pertinent to the patient complaint. Exam Narrative: General: Well-developed, well nourished, in no apparent distress Head: Normocephalic, atraumatic. Cardio: Regular rate and rhythm, s1 and s2 normal, no murmur appreciated. Resp: Clear to auscultation bilaterally, no rhonchi, rales, wheezing or rubs. Integumentary: [place], warm, and dry, painful red erythemic base rash with vesicular lesions to the right lower abdomen Course Course Emergency Course: Portions of this record may have been created with voice recognition software. Level of Care: Express Care Visit Vital Signs Vital signs: V
[2023-12-22 10:21] VITALS: BP 113/57; PULSE 84; RESP 16; TEMP 36.3; O2SAT 100
== END 2023-12-22 10:44 | disposition home or self-care (01) ==
PROVIDERS: Emergency Provider Nurse Practitioner Family; PCP Family Medicine
DX: B02.9 Zoster without complications (principal); M19.90 Unspecified osteoarthritis, unspecified site; J45.909 Unspecified asthma, uncomplicated; K21.9 Gastro-esophageal reflux disease without esophagitis; E03.9 Hypothyroidism, unspecified; I34.0 Nonrheumatic mitral (valve) insufficiency
CPT/HCPCS: 99213; G0463

== ENCOUNTER 2024-03-27 09:44 | Emergency (ER) | payer OTHER, SELFPAY ==
--- NOTE | ~2024-03-27 | XR_ITS ---
EXAMINATION: XR chest 2V DATE: 03/27/2024 10:16 INDICATION: Productive cough and chest discomfort TECHNIQUE: frontal and lateral views of the chest were obtained. COMPARISON: Chest radiograph dated 05/31/2013 FINDINGS: Unchanged mild biapical pleural-parenchymal scarring. No other airspace opacities, pulmonary edema, p leural effusion or pneumothorax. The cardiomediastinal silhouette is normal. Visualized bones and sof t tissues are unremarkable. IMPRESSION: 1. No acute cardiopulmonary disease. Reviewed, dictated and finalized at location A. OWS ASSEMBLER
--- NOTE | 2024-03-27 09:50 | ED_ITS ---
HPI - URI/Sore Throat General Chief Complaint: Upper Respiratory Infection Stated Complaint: Sore throat / cough Time Seen by Provider: 03/27/24 10:00 Source: patient Mode of arrival: ambulatory Limitations: no limitations History of Present Illness HPI Narrative: Inez is a 63-year-old female patient presenting to the clinic today with complaints of sore throat, cough, chest congestion, and sinus congestion. Symptoms started Thursday afternoon/evening. She denies any known fever. Recently was diagnosed with COVID on March 03 and took Paxlovid. She reports her symptoms improved after taking paxlovid. Has chest burning with coughing. Has had exposure to strep. History of asthma. MD elicited complaint: sore throat and nasal congestion Related Data Home Medications Medication Instructions Recorded Confirmed estradiol-norethindrone acet 0.5 1 tablet PO DAILY 12/21/19 03/27/24 mg-0.1 mg tablet gabapentin 300 mg capsule 300 mg PO TID 02/18/21 03/27/24 levothyroxine 50 mcg capsule 50 mcg PO .QD 07/21/22 03/27/24 lifitegrast 5 % eye drops in a 1 drp EACH EYE BID 11/24/22 03/27/24 dropperette (Xiidra) Allergies Allergy/AdvReac Type Severity Reaction Status Date / Time No Known Allergies Allergy Verified 03/27/24 09:51 Review of Systems Review of Systems: Pertinent positives per HPI. Patient denies any fever, chills, rash, headache, visual changes, dizziness, shortness of breath, palpitations, nausea, vomiting, diarrhea, constipation, abdominal pain, or any urinary issues. [facility] Past Medical History Medical History Acute stress reaction Arthralgia Arthritis Asthma BMI 25.0-25.9,adult Bone spur of foot Bursitis of left hip Chronic pain Dysphagia Essential tremor Foot pain GERD (gastroesophageal reflux disease) Hair loss disorder Hypothyroidism (acquired) Mitral valve regurgitation states had echo due to murmur. Unsure of severity but believes mild. Says she notices her heart rate rise as high as 140 on her apple watch and was told it was because of this. Pain in left hip Piriformis syndrome of left side PONV (postoperative nausea and vomiting) Right shoulder pain Tear of left acetabular labrum Family History Family History Other Carcinoma of colon Family history of hypercholesterolemia Family history of kidney disease Family history of lung cancer Family history of malignant neoplasm Family history of osteoporosis Social History Social History Smoking status: Never smoker Alcohol intake: current Drinks per week: 3 Substance use: never Substance use type: does not use Do You Feel Safe in your Home?: Yes Lack of Transportation: No Lack of Food: Never True Current Housing: I Have Housing Concerned About Future Housing: No Difficulty Paying Gas/Electric Bills: No Difficulty Paying for Meds: No Currently Unemployed: No Education: Trade/Vocational Certificate Difficulty w/ Childcare or Family Care: No Living arrangements: with family Occupation/Education: occupation 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 There is no relevant family history pertinent to the patient complaint. Exam Narrative: General: Well-developed, well nourished, in no apparent distress Head: Normocephalic, atraumatic Eyes: Pupils equally round and reactive to light bilaterally, EOM intact, sclera and conjunctive clear, no discharge, lids normal Ears: TMs intact, congested, fluid noted behind the TMs, ear canals clear, no drainage, grossly hearing normal. Nose: Nares patent, clear nasal discharge, moderate inflammation, no sinus tenderness. Mouth: Oral pharynx red without lesions or masses, good dentition, MMM. Neck: Supple, trachea midline, no enlargement of anterior or posterior cervical nodes, no thyroid masses or goiter palpable. Cardio: Regular rate and rhythm, s1 and s2 normal, no murmur appreciated. Resp: Diminished in the bases otherwise clear, no rhonchi, rales, wheezing or rubs Course Course Emergency Course: Portions of this record may have been created with voice recognition software. Level of Care: Express Care Visit Vital Signs Vital signs: Vital signs reviewed MDM - URI/Sore Throat MDM Narrative Medical decision making narrative: At the time of visit patient is resting comfortably on the exam table. Patient appears to be nontoxic. Labs: Strep test was negative. Send strep for culture. Diagnostics: Chest x-ray was performed and was negative for any acute cardiopulmonary process. Plan: I suspect patient has URI with cough and congestion/pharyngitis. Will send in prescription for some prednisone. Supportive measures were discussed with the patient and they voiced understanding discharge instructions and agrees to treatment plan. Return precautions reviewed Differential Diagnosis Differential diagnosis: Likely upper respiratory infection, otitis media, sinusitis, viral infection, bronchitis, influenza, pharyngitis and other (COVID) Discharge Plan Discharge Clinical Impression: Upper respiratory infection with cough and congestion Pharyngitis Qualifiers: Pharyngitis/tonsillitis etiology: unspecified etiology Qualified Code(s): J02.9 - Acute pharyngitis, unspecified Patient Disposition: Home, Self-Care Condition: Stable Instructions: Antibiotic Form, Pharyngitis (ED), Cold Symptoms (ED) Additional Instructions: Strep test was negative in the clinic today. We will send for culture if this comes back positive we will contact you and place you on antibiotics at that time. Take medications as prescribed-prednisone, Tessalon Perles, and albuterol inhaler May take Mucinex during the daytime and take Tessalon Perles at night to help you sleep Increase fluids and stay well hydrated Tylenol/motrin for pain/fever Flonase and OTC antihistamines as directed Vicks vapor rub to open sinuses Sinus rinses for congestion Cepacol spray, cough drops, throat lozenges, warm tea with honey/lemon, gargle salt water to soothe throat BRAT diet for diarrhea Clear liquids x 24 hours then advance as tolerated for nausea/vomiting Go to the ED if you develop a worsening in your condition- high fever not controlled by Tylenol or Motrin, dehydration, weakness, lethargy, shortness of breath, or chest pain. Follow up with your PCP in 3-5 days if symptoms persist. Prescriptions: New prednisone 20 mg tablet 40 mg PO DAILY 5 Days Qty: 10 0RF albuterol sulfate 90 mcg/actuation HFA aerosol inhaler 2 puff inhalation Q4-6H PRN (Reason: shortness of breath or wheezing) 30 Days Qty: 8.5 0RF benzonatate 200 mg capsule 200 mg PO TID 7 Days Qty: 21 0RF No Action levothyroxine 50 mcg capsule 50 mcg PO .QD Xiidra 5 % dropperette 1 drp EACH EYE BID estradiol-norethindrone acet 0.5-0.1 mg tablet 1 tablet PO DAILY gabapentin 300 mg capsule 300 mg PO TID esomeprazole magnesium [Nexium] 40 mg capsule,delayed release(DR/EC) 40 mg PO DAILY Qty: 90 0RF Follow-up/Referrals: Don Reina MD [Primary Care Provider] - Time of Disposition: 10:32 Quality NIHSS Nursing Documentation ED NIHSS nursing documentation: reviewed/agree
[2024-03-27 09:54] VITALS: BP 98/64; PULSE 109; RESP 16; TEMP 36.4; O2SAT 100
[2024-03-27 10:25] LABS: EDSTREPNEGPOS1 Negative (Negative)
== END 2024-03-27 10:35 | disposition home or self-care (01) ==
PROVIDERS: Emergency Provider Nurse Practitioner Family; PCP Family Medicine
DX: J06.9 Acute upper respiratory infection, unspecified (principal); R05.9 Cough, unspecified; J02.9 Acute pharyngitis, unspecified; K21.9 Gastro-esophageal reflux disease without esophagitis; E03.9 Hypothyroidism, unspecified; M19.90 Unspecified osteoarthritis, unspecified site; J45.909 Unspecified asthma, uncomplicated; Z86.16 Personal history of COVID-19
CPT/HCPCS: 71046; 87081; 87880; 99213; G0463

== ENCOUNTER 2024-05-17 15:28 | Emergency (ER) | payer OTHER, SELFPAY ==
[2024-05-17 15:48] VITALS: BP 116/68; PULSE 95; RESP 16; TEMP 36.6; O2SAT 100
[2024-05-17] MEDS: TETRACAINE HCL 0.5% OPHTH SOLN 4 ML BTL 2 DROP LEFT EYE (16:01)
[2024-05-17] MEDS: DACRIOSE EYE IRRIGATION 118 ML BOTTLE 10 ML LEFT EYE (16:02)
[2024-05-17] MEDS: FLUORESCEIN SOD 1 MG/STRIP LEFT EYE (16:02)
--- NOTE | 2024-05-17 16:07 | ED_ITS ---
HPI - Eye Problem General Chief complaint: Eye Problems Stated complaint: LT eye Pain Time Seen by Provider: 05/17/24 16:07 Source: patient Mode of arrival: ambulatory Limitations: intoxication History of Present Illness HPI Narrative: 63-year-old female presents with complaint of pain, redness and clear drainage from left eye. Patient has cat house is in her yd to help huggins cats warm but during the winter. Was messing with the insulation inside the cat house and then rubbed her left eye. Was wearing gloves at the time and possibly had insulation on her hand. Patient reports immediate irritation to left eye with pain. Denies vision change. Reports increase in redness for the past several days. Clear discharge. Mild light sensitivity. All systems reviewed and negative except as noted above. Related Data Home Medications ?Medication ?Instructions ?Recorded ?Confirmed ?Last Taken ?Type estradiol-norethindrone acet 0.5 1 tablet PO DAILY 12/21/19 04/05/24 01/13/21 History mg-0.1 mg tablet gabapentin 300 mg capsule 300 mg PO TID 02/18/21 04/05/24 Unknown History levothyroxine 50 mcg capsule 50 mcg PO .QD 07/21/22 04/05/24 Unknown History lifitegrast 5 % eye drops in a 1 drp EACH EYE BID 11/24/22 04/05/24 Unknown History dropperette (Xiidra) trospium 20 mg tablet 20 mg PO BID 03/27/24 04/05/24 Unknown History Allergies Allergy/AdvReac Type Severity Reaction Status Date / Time No Known Allergies Allergy Verified 05/17/24 15:49 Review of Systems Review of Systems: CONSTITUTIONAL: Denies fever, chills, or sweats. EYES: Denies visual changes . Reports left eye redness, pain, light sensitivity, clear drainage. ENT: Denies rhinorrhea, congestion, sore throat, or otalgia. CARDIOVASCULAR: Denies chest pain, palpitations, or edema. RESPIRATORY: Denies cough or dyspnea. GASTROINTESTINAL: Denies abdominal pain, nausea, vomiting, or diarrhea. GENITOURINARY: Denies dysuria or hematuria. SKIN: Denies rash or itching. MUSCULOSKELETAL: Denies back pain, joint pain, or myalgia. NEUROLOGIC: Denies headache, numbness, or weakness. PSYCHIATRIC: Denies anxiety or depression. All other systems reviewed are negative, except as documented in HPI. [facility] Past Medical History Medical History (Updated 05/17/24 @ 16:08 by Denisse Drake NP) Sinusitis Bronchitis Cough present for greater than 3 weeks Right shoulder pain Hypothyroidism (acquired) Chronic pain Arthralgia Hair loss disorder Bone spur of foot Foot pain Piriformis syndrome of left side Tear of left acetabular labrum Bursitis of left hip Pain in left hip Dysphagia Arthritis Asthma Acute stress reaction GERD (gastroesophageal reflux disease) BMI 25.0-25.9,adult PONV (postoperative nausea and vomiting) Mitral valve regurgitation states had echo due to murmur. Unsure of severity but believes mild. Says she notices her heart rate rise as high as 140 on her apple watch and was told it was because of this. Essential tremor Family History Family History Other Carcinoma of colon Family history of hypercholesterolemia Family history of kidney disease Family history of lung cancer Family history of malignant neoplasm Family history of osteoporosis Social History Social History Smoking status: Never smoker Alcohol intake: current Drinks per week: 3 Substance use: never Substance use type: does not use Do You Feel Safe in your Home?: Yes Lack of Transportation: No Lack of Food: Never True Current Housing: I Have Housing Concerned About Future Housing: No Difficulty Paying Gas/Electric Bills: No Difficulty Paying for Meds: No Currently Unemployed: No Education: Trade/Vocational Certificate Difficulty w/ Childcare or Family Care: No Living arrangements: with family Occupation/Education: occupation 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 There is no relevant family history pertinent to the presenting complaint. Exam Narrative: GENERAL: This is a well-nourished, well-developed patient, in no apparent distress. HEAD: normocephalic, atraumatic. EYES: PERRL. Erythema to sclera and conjunctiva of left eye with clear drainage. Right eye normal. Vision is grossly intact. Topical anesthetic was instilled with good anesthesia using 1gtt of opth anesthetic agent (tetracaine). Fluorescein stain of the L eye was performed. small corneal abrasion to 6 o'clock and 11 o'clock of L eye. NO FB, ulcer or dendritic lesions. Upper lid was everted and no FB or lesions were noted. Normal saline irrigation eye solution was performed and the patient tolerated the procedure well, no adverse reaction or complications. EARS: External ears normal NOSE: External nose normal NECK: Neck supple, non-tender without lymphadenopathy, masses or thyromegaly. CARDIOVASCULAR: Regular rate and rhythm without murmurs, gallops, or rubs. RESPIRATORY: Clear to auscultation. Breath sounds equal bilaterally. No wheezes, rales, or rhonchi. SKIN: warm, Dry, intact with no suspicious lesions or rash, good texture and turgor. NEURO: awake, alert, and oriented to person, place and time. There were no obvious focal neurologic abnormalities. EXTREMITIES: No joint tenderness, effusion, or edema noted. Course Course Level of Care: Express Care Visit Vital Signs Vital signs: Vital Signs Temperature 36.6 C 05/17/24 15:48 Pulse Rate 95 05/17/24 15:48 Respiratory Rate 16 05/17/24 15:48 Blood Pressure 116/68 05/17/24 15:48 Pulse Oximetry 100 05/17/24 15:48 Oxygen Delivery Room Air 05/17/24 15:48 Temperature 36.6 C 05/17/24 15:48 Pulse Rate 95 05/17/24 15:48 Respiratory Rate 16 05/17/24 15:48 Blood Pressure 116/68 05/17/24 15:48 Pulse Oximetry 100 05/17/24 15:48 Oxygen Delivery Room Air 05/17/24 15:48 Reviewed MDM - Eye Problem MDM Narrative Medical decision making narrative: corneal abrasion noted to left eye. Will prescribe ofloxacin. Recommend follow-up with granite worker. Patient is aware of diagnosis, understands and agrees to treatment plan. Anticipatory guidance given. Patient agrees to follow-up as directed and is aware of reasons to seek care at the emergency department. Portions of this record may have been created with voice recognition software Differential Diagnosis Differential diagnosis: Likely corneal abrasion and conjunctivitis Discharge Plan Discharge Clinical Impression: Injury of conjunctiva and corneal abrasion of left eye w/o FB Patient Disposition: Home, Self-Care Condition: Stable Instructions: Antibiotic Form, Corneal Abrasion (ED) Additional Instructions: Place antibiotic eyedrops as prescribed. Wash hands before and after placing drops. take ibuprofen every 6-8 hours as needed for pain. May wear sunglasses to decrease light sensitivity. Follow-up with your it training specialist if symptoms are not improving. Go to the ER for any worsening of your symptoms. Patient Language: Swedish Prescriptions: New ofloxacin 0.3 % drops See Rx Instructions .ROUTE .COMPLEX Qty: 10 0RF Rx Instructions: put 1-2 drps into affected eye(s) every 2-4 h x 2 days, then 1-2 drps 4 times/day days 3-7 No Action albuterol sulfate 90 mcg/actuation HFA aerosol inhaler 2 puff inhalation Q4-6H PRN (Reason: shortness of breath or wheezing) 30 Days Qty: 8.5 0RF trospium 20 mg tablet 20 mg PO BID levothyroxine 50 mcg capsule 50 mcg PO .QD Xiidra 5 % dropperette 1 drp EACH EYE BID estradiol-norethindrone acet 0.5-0.1 mg tablet 1 tablet PO DAILY gabapentin 300 mg capsule 300 mg PO TID esomeprazole magnesium [Nexium] 40 mg capsule,delayed release(DR/EC) 40 mg PO DAILY Qty: 90 0RF Follow-up/Referrals: Don Reina MD [Primary Care Provider] - Time of Disposition: 16:10
== END 2024-05-17 16:14 | disposition home or self-care (01) ==
PROVIDERS: Emergency Provider Nurse Practitioner Family; PCP Family Medicine
DX: S05.02XA Injury of conjunctiva and corneal abrasion without foreign body, left eye, initial encounter (principal); E03.9 Hypothyroidism, unspecified; X58.XXXA Exposure to other specified factors, initial encounter
CPT/HCPCS: 99213; A9270; G0463

== ENCOUNTER 2025-01-19 10:57 | Outpatient (CLI) | payer OTHER, SELFPAY ==
--- OUTSIDE RECORDS SUMMARY | 2025-01-17 11:04 | XMS_ITS | Encounter Summary ---
Author Organization [facility] Address [address] [place] [address] Care Team Providers Care Wool Handler Name Role Phone Don Reina MD Primary Care Provider [phone] Reason for Referral * Radiology Services (Routine) - Closed Specialty Diagnoses / Procedures Referred By Contac t Referred To Contact Radiology Diagnoses Encounter for screening mammogram for breast cancer Procedures MAMMO 3D MARY SCREEN BILAT W OR WO CAD CHG SCREENING MAMMOGRAPHY BI 2-VIEW BREAST INC CAD CHG SCREENING DIGITAL BREAST TOMOSYNTHESIS Don Chavez MD [address] [place] [address] Phone: tel: fax: Referral ID Status Reason Start Date Expiration Date Visits Re quested Visits Authorized [id number] Closed 01/05/2025 02/05/2026 1 1 Reason for Visit * Radiology Services (Routine) - Closed Specialty Diagnoses / Procedures Referred By Contac t Referred To Contact Radiology Diagnoses Encounter for screening mammogram for breast cancer Procedures MAMMO 3D MARY SCREEN BILAT W OR WO CAD CHG SCREENING MAMMOGRAPHY BI 2-VIEW BREAST INC CAD CHG SCREENING DIGITAL BREAST TOMOSYNTHESIS Don Chavez MD [address] [place] [address] Phone: tel: fax: Referral ID Status Reason Start Date Expiration Date Visits Re quested Visits Authorized [id number] Closed 01/05/2025 02/05/2026 1 1 Encounter Details Date Type Department Care Team (Late st Contact Info) Description 01/17/2025 11:04 AM CDT - 01/17/2025 11:59 PM CDT Hospital Encounter [facility] [address] [place] [address] Don Reina MD [address] 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 03/13/2022 vibegron (Gemtesa) 75 mg Tablet oxybutynin chloride (DITROPAN XL) 5 mg Extended Release 24 hour tablet 03/14/2021 magnesium oxide (MAG-OX) 400 mg (241.3 mg magnesium) tablet Take 400 mg by mouth daily. meloxicam (MOBIC) 15 mg tablet TAKE 1 TABLET BY MOUTH EVERY DAY 3 03/05/2018 cycloSPORINE (RESTASIS) 0.05 % emulsion 0.05 %. 04/04/2016 omeprazole (PriLOSEC) 40 mg Capsule, Delayed Release(E.C.) Take 40 mg by mouth daily. flu vaccine quadrivalent 2017- (36 mo+)(PF)(FLUZONE QUAD) 60 mcg/0.5 mL IM syringe Pharmacist to administer 0.5ml IM in deltoid x 1 dose per protocol 0.5 mL 03/18/2018 estradiol-norethin drone Acet 1-0.5 mg Oral tabletIndications: Diffuse cystic mastopathy Take 1 Tab by mouth daily. Calcium-Cholecalci ferol, D3, 400-133.3 mg-unit TabletIndications: Diffuse cystic mastopathy Take by mouth. cholecalciferol, vitamin D3, 100 mcg (4,000 unit) CapsuleIndications :Diffuse cystic mastopathy Take by mouth. documented as of this encounter Plan of Treatment Not on file documented as of this encounter Procedures Procedure Name Priority Date/Time Associated Diagnosis Comments MAMMO 3D MARY SCREEN BILAT W OR WO CAD Routine 01/17/2025 11:16 AM CDT Encounter for screening mammogram for breast cancer documented in this encounter Results * MAMMO 3D MARY SCREEN BILAT W OR WO CAD (01/17/2025 11:16 AM CDT) Anatomical Region Laterality Modality Breast Bilateral Mammography 01/17/2025 11:1 6 AM CDT Impressions 01/17/2025 11:31 AM CDT IMPRESSION: Potential left breast distortion. Left diagnostic mammography and possible ultrasound recommended. OVERALL FINAL ASSESSMENT: BI-RADS CATEGORY 0: Incomplete, need additional imaging evaluation. DICTATION LOCATION: [facility] 01/17/2025 11:31 AM CDT BILATERAL SCREENING DIGITAL MAMMOGRAM WITH 3D TOMOSYNTHESIS AND CAD DATE: 01/17/2025 11:16 AM HISTORY: Routine screening. TECHNIQUE: Full-field digital craniocaudal and mediolateral oblique projections of both breasts were obtained. Low-dose full-field digital breast tomosynthesis examination was performed with 2D and 3D acquisitions. Examination is read in conjunction with computer aided detection. COMPARISON: Prior available breast imaging exams. BREAST COMPOSITION: There are scattered areas of fibroglandular density FINDINGS: Potential distortion upper outer left breast. No concerning finding in the right breast. us Don Reina MD MAMMO ORDERABLES Final Result documented in this encounter Visit Diagnoses Diagnosis Encounter for screening mammogram for breast cancer documented in this encounter Care Teams Wool Handler Relationship Specialty Start Date End Date Don Reina MD [address] [place] [address] PCP - General 06/05/08 documented as of this encounter
--- NOTE | ~2025-01-19 | XR_ITS ---
EXAMINATION: XR hand RT 2V DATE: 01/19/2025 11:16 INDICATION: Pain in hand TECHNIQUE: 2 images of the right hand were obtained. COMPARISON: None. FINDINGS: Bone mineralization is within normal limits. No fracture. No dislocation. Mild soft tissue swelling about the right hand. Mild joint space narrowing in the first carpometacarpal joint, metacarpophalangeal joints, interphalangeal joint of the thumb and PIP and DIP joints of the second, third and fifth digits. Severe joint space narrowing in the DIP joint of the fourth digit. There are two less than 5 mm lucencies in the head of the middle phalanx of the fourth digit with adjacent soft tissue swelling. IMPRESSION: 1. No fracture. No dislocation. 2. Mild joint space narrowing in the left hand as detailed above. 3. Severe joint space narrowing in the DIP joint of the fourth digit. There are two less than 5 mm lucencies in the head of the middle phalanx of the fourth digit with adjacent soft tissue swelling. Reviewed, dictated and finalized at location Q. IMPRESSION: 1. No fracture. No dislocation. 2. Mild joint space narrowing in the left hand as detailed above. 3. Severe joint space narrowing in the DIP joint of the fourth digit. There are two less than 5 mm lucencies in the head of the middle phalanx of the fourth d igit with adjacent soft tissue swelling.
--- NOTE | ~2025-01-19 | XR_ITS ---
EXAMINATION: XR hand LT 2V DATE: 01/19/2025 11:16 INDICATION: Pain in bilateral hands TECHNIQUE: 2 images of the left hand were obtained. COMPARISON: None. FINDINGS: Bone mineralization is within normal limits. No fracture. No dislocation. Mild soft tissue swelling about the left hand. Mild joint space narrowing in the first carpometacarpal joint, metacarpophalangeal joints, interphalangeal joint of the thumb and PIP and DIP joints of the second through fifth digits. IMPRESSION: 1. No fracture. No dislocation. 2. Mild joint space narrowing in the left hand as detailed above. Reviewed, dictated and finalized at location Q.
--- OUTSIDE RECORDS SUMMARY | 2025-01-19 11:02 | XMS_ITS | Encounter Summary ---
Author Organization [employer] Address 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 [id number] PCP - General 06/05/08 documented as of this encounter
--- OUTSIDE RECORDS SUMMARY | 2025-01-19 11:02 | XMS_ITS | Encounter Summary ---
Author Organization [employer] Address 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 [address] PCP - General 06/05/08 documented as of this encounter
--- OUTSIDE RECORDS SUMMARY | 2025-01-19 11:02 | XMS_ITS | Clinical Summary ---
Author Organization [facility] Address [address] [place] [address] Care Team Providers Care Stretch Press Operator Name Role Phone Don Reina MD Primary Care Provider [phone] Allergies No known active allergies Medications estradiol-noret hindrone (ACTIVELLA) 0.5-0.1 mg per tablet take 1 tablet by oral route every day 0 0 04/04/2016 Active cyanocobalamin (vitamin B-12) 100 mcg tablet takes daily 0 0 05/06/2016 Active levothyroxine (SYNTHROID) 50 mcg tablet Take 1 tablet (50 mcg total) by mouth daily 06/02/2022 Active multivitamin tabletIndicatio ns:Vitamin Deficiency Prevention Take 1 tablet by mouth daily Active trospium (SANCTURA) 20 mg tablet Take 1 tablet (20 mg total) by mouth 2 (two) times a day 04/23/[address] (NexIUM) 20 mg capsule Take 1 capsule (20 mg total) by mouth daily Active gabapentin (NEURONTIN) 300 mg capsule Take 1 capsule (300 mg total) by mouth every morning AND 2 capsules (600 mg total) nightly. 270 capsule 3 08/11/2024 Active Active Problems Problem Noted Date Diagnosed Date Restless legs syndrome 06/30/2016 Overview (08/29/2016): Restless leg syndrome Cramps of lower extremity 06/30/2016 Overview (08/29/2016): Muscle cramps of leg Essential tremor 06/30/2016 Overview (08/29/2016): Essential tremor Surgical History Surgery Date Site/Laterality Comments OTHER SURGICAL HISTORY tarsal tunnel repair Medical History Medical History Date Comments Gastroesophageal reflux disease GERD - Gastro-esophageal reflux disease Osteopenia Osteopenia Hx Other Medical allergies Mitral valve prolapse Mitral mary ve prolapse Tremors of nervous system Restless leg syndrome Family History Medical History Relation Name Comments Emphysema Father Emphysema; Caus e of : Emphysema Lung cancer Father Cancer, lung; C ause of : Cancer, lung Colon cancer Mother Cancer, colon; Emphysema Mother Emphysema; Caus e of : Emphysema Kidney cancer Mother Cancer, kidney ; Kidney disease Mother Renal disease ; Cause of : Renal disease Lung cancer Mother Cancer, lung; H F 05/06/2016 -error Parkinsonism Mother Parkinson's dis ease; Cancer Other 1 Family history of Cancer, unknown; Other Other 2 sibling Mental retardat ion; Relation Name Status Comments Father Mother Other 1 Other 2 sibling Social History Tobacco Use Types Packs/Day Years Used Date Smoking Tobacco: Never Smokeless Tobacco: Never Tobacco Cessation:Counseling Given: Not Answered Alcohol Use Standard Drinks/Week Comments Yes 0 (1 standard drink = 0.6 oz pur e alcohol) AUDIT-C Answer Date Recorded Q1: How often do you have a drink containing alc ohol? 2-3 times a week 06/02/2022 Q2: How many drinks containi ng alcohol do you have on a typical day when you are drinking? 1 or 2 06/02/2022 Q3: How often do you have si x or more drinks on one occasion? Never 06/02/2022 Comments Unknown Sex and Gender Information Value Date Recorded Sex Assigned at Not on file Legal Sex Female 4:15 AM OFFICE MESSENGER Gender Identity Female 02/06/2021 8:06 PM CDT Sexual Orientation Not on file Obstetrics History Last Filed Vital Signs Vital Sign Reading Time Taken Comments Blood Pressure 108/66 08/11/2024 7:52 AM CDT Pulse 74 08/11/2024 7:52 AM CDT Temperature - - Respiratory Rate 16 08/11/2024 7:52 AM CDT Oxygen Saturation 99% 06/10/2023 8:25 AM OFFICE MESSENGER Inhaled Oxygen Concentration - - Weight 56.2 kg (124 lb) 08/11/2024 7:52 AM CDT Height 162.6 cm (5' 4) 08/11/2024 7:52 AM CDT Body Mass Index 21.28 08/11/2024 7:52 AM CDT Plan of Treatment Health Maintenance Due Date Last Done Comments Colon Cancer Screening-Colonoscopy 1958 Depression Screening 1958 Fall Risk Assessment 1958 Hepatitis C Screening 1960 Osteoporosis Screening-Bone Density Scan 1958 Pneumococcal vaccine 65+ (1 of 1 - PCV) 2008 Zoster Vaccine (1 of 2) 2008 Well Visit 65+ 2023 Breast Cancer Screening-Mammogram 10/01/2024 10/02/2023, 10/02/2023, 03/31/2022, Additional history exists Influenza Vaccine (#1) 2025 , 02/28/2019, 03/23/2018 DTaP/Tdap/Td Vaccine (2 - Td or Tdap) 06/21/2029 06/21/2019 Hepatitis B Screening Completed 02/19/2024 , 09/18/2023, 07/17/2023 Insurance [facility] CHOICE [facility]US [facility] ADVANTAGE CHOICE PPO Care Teams Stretch Press Operator Relationship Specialty Start Date End Date Don Reina MD PCP - General 06/30/16
--- OUTSIDE RECORDS SUMMARY | 2025-01-19 11:02 | XMS_ITS | Clinical Summary ---
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 Gender Identity Not on file Sexual Orientation Not on file Plan of Treatment Health Maintenance Due Date Last Done Comments Colorectal Cancer Screening Colonoscopy (10 Years) 1958 Hepatitis C 1976 DTaP, Tdap and Td Vaccines ( 1 - Tdap) 1977 Mammogram Screening 1998 Pneumococcal Vaccine: 50+ Ye ars (1 of 1 - PCV) 2008 Zoster Vaccines (1 of 2) 2008 Dexa Scan (General) 2023 COVID-19 Vaccine ( - 2023-2 5 season) 2024 RSV Immunization or 60+ Years (1 - 1-dose 75+ series) 2033 Meningococcal B Vaccine Aged Out No l onger eligible based on patient's age to complete this topic Meningococcal Vaccine Aged Out No carmine mir eligible based on patient's age to complete this topic RSV Immunizations Under 20 Months Aged Out No longer eligible based on patient's age to complete this topic
--- OUTSIDE RECORDS SUMMARY | 2025-01-19 11:02 | XMS_ITS | Clinical Summary ---
Author Organization [employer] [facility] Address [address] [place] [address] Phone Care Team Providers Care Thread Milling Machine Set Up Operator Name Role Phone Don Reina MD Primary Care Provider [phone] Allergies No known active allergies Medications estradiol-norethi ndrone Acet 1-0.5 mg Oral tabletIndications :Diffuse cystic mastopathy Take 1 Tab by mouth daily. Active Calcium-Cholecalc iferol, D3, 400-133.3 mg-unit TabletIndications :Diffuse cystic mastopathy Take by mouth. Acti ve cholecalciferol, vitamin D3, 100 mcg (4,000 unit) CapsuleIndication s:Diffuse cystic mastopathy Take by mouth. Acti ve magnesium oxide (MAG-OX) 400 mg (241.3 mg magnesium) tablet Take 400 mg by mouth daily. Active meloxicam (MOBIC) 15 mg tablet TAKE 1 TABLET BY MOUTH EVERY DAY 3 8 Active cycloSPORINE (RESTASIS) 0.05 % emulsion 0.05 %. 6 Active omeprazole (PriLOSEC) 40 mg Capsule, Delayed Release(E.C.) Take 40 mg by mouth daily. Active flu vaccine quadrivalent 2018- (36 mo+)(PF)(FLUZONE QUAD) 60 mcg/0.5 mL IM syringe Pharmacist to administer 0.5ml IM in deltoid x 1 dose per protocol 0.5 mL 8 Active oxybutynin chloride (DITROPAN XL) 5 mg Extended Release 24 hour tablet 1 Active levothyroxine 50 mcg tablet Take 50 mcg by mouth daily. 2 Active vibegron (Gemtesa) 75 mg Tablet Active Active Problems Patient Care Coordination No te Formatting of this note migh t be different from the original. Primary Care: Don Reina MD Referring Provider: Milad Vazquez MD [address] [facility] [address] [place] [address] Other: Problem Noted Date Diagnosed Date Diffuse cystic mastopathy 01/29/2010 Mitral valve regurgitation GERD (gastroesophageal reflux disease) Seasonal allergies Hiatal hernia Nerve entrapment Resolved Problems Problem Noted Date Diagnosed Date Resolved Date Other screening mammogram 10/04/2012 Encounters Date Type Department Care Team Description 01/17/2025 11:04 AM CDT - 01/17/2025 11:59 PM CDT Hospital Encounter [facility] [address] [place] [id number] Don Reina MD Arrived Discharge Disposition: Home or Self Care from Last 3 Months Family History Medical History Relation Name Comments Cancer Father Cancer Maternal Aunt Cancer Maternal Grandfather Cancer Mother Breast Cancer Neg Hx Ovarian Cancer Neg Hx Relation Name Status Comments Father Maternal Aunt Maternal Grandfather Mother Social History Tobacco Use Types Packs/Day Years Used Date Smoking Tobacco: Never Tobacco Cessation:Counseling Given: Not Answered Alcohol Use Standard Drinks/Week Comments Yes 0 (1 standard drink = 0.6 oz pur e alcohol) rarely Comments No Sex and Gender Information Value Date Recorded Sex Assigned at Not on file Legal Sex Female 3:03 AM MANAGER PLAY Gender Identity Not on file Sexual Orientation Not on file Occupation Industry Job Start Date Job End Date Not on file Not on file Not on file Not on file Not on file Not on file Not on file Not on file Last Filed Vital Signs Vital Sign Reading Time Taken Comments Blood Pressure 110/68 03/31/2022 10:54 AM MANAGER PLAY Pulse 81 03/31/2022 10:54 AM MANAGER PLAY Temperature 36.7 C (98.1 F) 03/31/2022 10:54 AM MANAGER PLAY Respiratory Rate - - Oxygen Saturation 98% 03/31/2022 10:54 AM MANAGER PLAY Inhaled Oxygen Concentration - - Weight 64 kg (141 lb) 03/31/2022 10:54 AM MANAGER PLAY Height 162.6 cm (5' 4) 03/31/2022 10:54 AM MANAGER PLAY Body Mass Index 24.2 03/31/2022 10:54 AM MANAGER PLAY Plan of Treatment Health Maintenance Due Date Last Done Comments PNEUMOCOCCAL VACCINE 50+ YEA RS (1 of 2 - PCV) 1977 COLORECTAL SCREENING 2003 Colorectal Cancer Screening 2003 FIT-DNA Q 3 years 2003 FIT/FOBT Q 1 year 2003 Flex Sig/CT Colonography Q 5 years 2003 ZOSTER VACCINE (1 of 2) 2008 RSV VACCINE (60+ or ) (1 - Risk 60-74 years 1-dose series) 2018 OSTEOPOROSIS SCREENING 2023 Medicare Ad[place]age ([place]) Preventative Visit/Annual Wellness Visit 05/25/2024 INFLUENZA VACCINE (#1) 2024 , 07/03/2023, 05/05/2022, Additional history exists BREAST CANCER SCREENING 01/17/2026 01/18/20 25, 10/02/2023, 03/31/2022, Additional history exists DTAP/TDAP/TD VACCINES (2 - T d or Tdap) 06/21/2029 06/21/2019 Procedures Procedure Name Priority Date/Time Associated Diagnosis Comments MAMMO 3D MARY SCREEN BILAT W OR WO CAD Routine 01/17/2025 11:16 AM CDT Encounter for screening mammogram for breast cancer from Last 3 Months Results * MAMMO 3D MARY SCREEN BILAT W OR WO CAD (01/17/2025 11:16 AM CDT) Anatomical Region Laterality Modality Breast Bilateral Mammography 01/17/2025 11:1 6 AM CDT Impressions 01/17/2025 11:31 AM CDT IMPRESSION: Potential left breast distortion. Left diagnostic mammography and possible ultrasound recommended. OVERALL FINAL ASSESSMENT: BI-RADS CATEGORY 0: Incomplete, need additional imaging evaluation. DICTATION LOCATION: Janessa Moya Peter 01/17/2025 11:31 AM CDT BILATERAL SCREENING DIGITAL [...] concerning finding in the right breast. us Donsusan Reina MD MAMMO ORDERABLES Final Result from Last 3 Months Insurance [employer] PPO MCR Care Teams Thread Milling Machine Set Up Operator Relationship Specialty Start Date End Date Don Reina MD [address] [place] [address] PCP - General 06/05/08
--- OUTSIDE RECORDS SUMMARY | 2025-01-19 11:02 | XMS_ITS | Encounter Summary ---
Author Organization [employer] Address 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 [place] [phone] PCP - General 06/05/08 documented as of this encounter
--- OUTSIDE RECORDS SUMMARY | 2025-01-19 11:02 | XMS_ITS | Encounter Summary ---
Author Organization [employer] Address [address] [place] [address] Care Team Providers Care Supervisor Engine Assembly Name Role Phone Don Reina MD Primary Care Provider [phone] Encounter Details Date Type Department Care Team (Late st Contact Info) Description 06/02/2003 Outpatient Historical [facility] Support Serv. (Adt Cardiology-[facility]) [address] [place] [address] Sang Ruiz MD NO ADDRESS ON FILE Social History Tobacco Use Types Packs/Day Years Used Date Smoking Tobacco: Never Assessed Comments Unknown Sex and Gender Information Value Date Recorded Sex Assigned at Not on file Legal Sex Female 3:03 AM SPECIAL FORCES SPECIALIST Gender Identity Not on file Sexual Orientation Not on file documented as of this encounter Plan of Treatment Not on file documented as of this encounter Visit Diagnoses Not on filedocumented in this encounter Care Teams Supervisor Engine Assembly Relationship Specialty Start Date End Date Don Reina MD [address] [place] [address] PCP - General 06/05/08 documented as of this encounter
--- OUTSIDE RECORDS SUMMARY | 2025-01-19 11:02 | XMS_ITS | Clinical Summary ---
Author Organization [facility] Address [address] [place] [address] Care Team Providers Care Slot Floor Attendant Name Role Phone Don Reina MD Primary Care Provider [phone] Source Comments [facility],non-owned Affiliates and Associated Physician Practices is amultiple site organization consisting of ambulatory clinics and hospital sitesin [place], [place], [place]. This disclosure is being madepursuant to the Care Everywhere program and may not contain all information available regarding this patient. Last updated 18.[facility] Allergies Active Allergy Reactions Criticality Noted Date Comments Seasonal Eye Discomfort,Wheezing Medium 12/31/2022 Medications * Be aware that medications may not be up to date on this document. Alwaysverify current medications with the patient. albuterol HFA (Proventil; Ventolin; Proair) 108 (90 Base) MCG/ACT inhaler Inhale 1 (one) puff by mouth every 6 hours 11/24/2022 Active Cholecalciferol 100 MCG (4000 UT) Take 1 tablet by mouth once daily Active esomeprazole (NexIUM) 20 MG capsule Take 1 (one) capsule by mouth once daily Active estradiol-noret hindrone (Activella) 0.5-0.1 MG tablet Take 1 (one) tablet by mouth once daily 09/15/2022 Active gabapentin (Neurontin) 300 MG capsule Take 1 (one) capsule by mouth at bedtime 09/25/2022 Active levothyroxine (Synthroid) 50 MCG tablet Take 1 (one) tablet by mouth once daily 12/22/2022 Active Xiidra 5 % opthalmic solution Instill 1 (one) drop into both eyes 2 times daily 11/25/2022 Active Multiple Vitamin (Multi-Vitamin) TABS Take 1 (one) tablet by mouth once daily Active trospium (Sanctura) 20 MG tablet Take 1 (one) tablet by mouth 2 times daily 11/13/2022 Active famotidine (Pepcid) 40 MG tablet Take 1 (one) tablet by mouth once daily Active VITAMIN B COMPLEX-C PO Take 1 tablet by mouth once daily Active Active Problems No known active problems Social History Tobacco Use Types Packs/Day Years Used Date Smoking Tobacco: Never Smokeless Tobacco: Never Tobacco Cessation:Counseling Given: Not Answered Comments No Sex and Gender Information Value Date Recorded Sex Assigned at Not on file Legal Sex Female 11:54 AM CDT Gender Identity Not on file Sexual Orientation Not on file Last Filed Vital Signs Vital Sign Reading Time Taken Comments Blood Pressure 108/72 01/30/2023 10:39 AM CDT Pulse 85 01/30/2023 10:39 AM CDT Temperature 36.7 C (98 F) 12/31/2022 10:02 AM CDT Respiratory Rate 16 12/31/2022 10:02 AM CDT Oxygen Saturation 95% 12/31/2022 10:02 AM CDT Inhaled Oxygen Concentration - - Weight 65.3 kg (144 lb) 02/13/2023 8:57 AM CDT Height 162.6 cm (5' 4) 02/13/2023 8:57 AM CDT Body Mass Index 24.72 02/13/2023 8:57 AM CDT Plan of Treatment Health Maintenance Due Date Last Done Comments BONE DENSITY TESTING 1958 COLOGUARD (AGES 45-75) - COLON CA SCREENING 1958 COLON MONITORING 1958 COLONOSCOPY - COLON CA SCREENING 1958 CT COLONOGRAPHY - COLON CA SCREENING 1958 Colorectal Cancer Screening 1958 FIT - COLON CA SCREENING 1958 FLEX SIG - COLON CA SCREENING 1958 LIPID TESTING 1958 MEDICARE AWV 12 MONTHS 1958 HEPATITIS C SCREENING 05/30/1976 DTAP/TDAP/TD VACCINES (1 - Tdap) 1977 PNEUMOCOCCAL VACCINE 50+ (1 of 1 - PCV) 2008 ZOSTER VACCINE (1 of 2) 2008 COVID-19 VACCINE (1 - 2023- season) 2024 DEPRESSION SCREENING 05/25/2024 INFLUENZA VACCINE (#1) 2025 MAMMOGRAM 10/01/2025 10/02/2023, 09/22, 03/31/2022, Additional history exists Respiratory Syncytial Virus (RSV) Vaccine Pt: or over 60 yrs (1 - 1-dose 75+ series) 2033 HEPATITIS B VACCINE Aged Out No longe r eligible based on patient's age to complete this topic HIB VACCINE Aged Out No longer eligi ble based on patient's age to complete this topic HPV VACCINE Aged Out No longer eligi ble based on patient's age to complete this topic MENINGOCOCCAL (Group B) VACCINE SHARED DECISION-MAKING Aged Out No longer eligible based on patient's age to complete this topic MENINGOCOCCAL GROUPS A/C/Y/W VACCINE Aged Out No longer eligible based on patient's age to complete this topic Insurance [employer] MEDICARE ADV PPO Care Teams Slot Floor Attendant Relationship Specialty Start Date End Date Don Reina MD [address] [place] [address] PCP - General Family Medicine 12/31/22
--- OUTSIDE RECORDS SUMMARY | 2025-01-19 11:02 | XMS_ITS | Encounter Summary ---
Author Organization [facility] Address [address] [place] [address] Care Team Providers Care Reflesher Name Role Phone Don Reina MD Primary Care Provider [phone] Encounter Details Date Type Department Care Team (Latest Contact Info) Description 06/02/2003 Outpatient Historical HIS CARDIOPULMONARY Rubio Gutierrez MD [address] [place] [address] PALPITATIONS (Primary Dx) Social History Tobacco Use Types Packs/Day Years Used Date Smoking Tobacco: Never Assessed Comments Unknown Sex and Gender Information Value Date Recorded Sex Assigned at Not on file Legal Sex Female 3:03 AM MACHINE PLUG SHAPER Gender Identity Not on file Sexual Orientation Not on file documented as of this encounter Plan of Treatment Not on file documented as of this encounter Visit Diagnoses Diagnosis Palpitations- Primary documented in this encounter Care Teams Reflesher Relationship Specialty Start Date End Date Don Reina MD [address] [place] [address] PCP - General 06/05/08 documented as of this encounter
== END 2025-01-19 10:58 | disposition home or self-care (01) ==
PROVIDERS: PCP Family Medicine; Visit Provider Nurse Practitioner Family
DX: M19.042 Primary osteoarthritis, left hand (principal); M19.041 Primary osteoarthritis, right hand
CPT/HCPCS: 73120

== ENCOUNTER 2025-03-27 00:24 | Day surgery (SDC) | payer OTHER, SELFPAY ==
[2025-03-21 13:23] VITALS: BMI 22.3
--- OUTSIDE RECORDS SUMMARY | 2025-03-27 00:27 | XMS_ITS | Clinical Summary ---
Author Organization [employer] [facility] Address [address] [place] [address] Phone Care Team Providers Care Tax Record Clerk Name Role Phone Don Reina MD Primary Care Provider [phone] Allergies No known active allergies Medications estradiol-norethi [...] MD Referring Provider: Milad Vazquez MD [address] [facility] [address] [place] [address] Other: Problem Noted Date Diagnosed Date Diffuse cystic mastopathy 01/29/2010 Mitral valve regurgitation GERD (gastroesophageal reflux disease) Seasonal allergies Hiatal hernia Nerve entrapment Resolved Problems Problem Noted Date Diagnosed Date Resolved Date Other screening mammogram 10/04/2012 Encounters Date Type Department Care Team Description 03/15/2025 External Device Data ST[facility] ABSTRACTION Provider, Abstract 03/14/2025 External Device Data ST[facility] ABSTRACTION Provider, Abstract 02/07/2025 External Device Data [facility] ABSTRACTION Provider, Abstract 02/02/2025 1:34 PM CDT - 02/02/2025 11:59 PM CDT Hospital Encounter [facility] [address] [place] [address] Janina Perea FNP Discharge Disposition: Home or Self Care 01/24/2025 External Device Data ST[facility] ABSTRACTION Provider, Abstract 01/24/2025 External Device Data [facility] ABSTRACTION Provider, Abstract 01/17/2025 11:04 AM CDT - 01/17/2025 11:59 PM CDT Hospital Encounter [facility] [facility] [address] [place] [address] Don Reina MD Discharge Disposition: Home or Self Care from [...] on file Legal Sex Female 3:03 AM CARPET CLEANING TECHNICIAN Gender Identity Not on file Sexual Orientation Not on file Occupation Industry Job Start Date Job End Date Not on file Not on file Not on file Not on file Not on file Not on file Not on file Not on file Last Filed Vital Signs Vital Sign Reading Time Taken Comments Blood Pressure 110/68 03/31/2022 10:54 AM CARPET CLEANING TECHNICIAN Pulse 81 03/31/2022 10:54 AM CARPET CLEANING TECHNICIAN Temperature 36.7 C (98.1 F) 03/31/2022 10:54 AM CARPET CLEANING TECHNICIAN Respiratory Rate - - Oxygen Saturation 98% 03/31/2022 10:54 AM CARPET CLEANING TECHNICIAN Inhaled Oxygen Concentration - - Weight 64 kg (141 lb) 03/31/2022 10:54 AM CARPET CLEANING TECHNICIAN Height 162.6 cm (5' 4) 03/31/2022 10:54 AM CARPET CLEANING TECHNICIAN Body Mass Index 24.2 03/31/2022 10:54 AM CARPET CLEANING TECHNICIAN Plan of Treatment Health Maintenance Due Date Last Done Comments PNEUMOCOCCAL VACCINE 50+ YEA RS (1 of 2 - PCV) 1977 COLORECTAL SCREENING 2003 Colorectal Cancer Screening 2003 FIT-DNA Q 3 years 2003 FIT/FOBT Q 1 year 2003 Flex Sig/CT Colonography Q 5 years 2003 RSV VACCINE (60+ or ) (1 - Risk 50-74 years 1-dose series) 2008 ZOSTER VACCINE (1 of 2) 2008 OSTEOPOROSIS SCREENING 2023 INFLUENZA VACCINE (#1) 2024 4, 07/03/2023, 05/05/2022, Additional history exists BREAST CANCER SCREENING 02/02/2026 02/03/20 25, 01/17/2025, 10/02/2023, Additional history exists DTAP/TDAP/TD VACCINES (2 - T d or Tdap) 06/21/2029 06/21/2019 Procedures Procedure Name Priority Date/Time Associated Diagnosis Comments MAMMO DIAG UNI LEFT 3D MARY W OR WO CAD Routine 02/02/2025 2:00 PM CDT Abnormal mammogram MAMMO 3D MARY SCREEN BILAT W OR WO CAD Routine 01/17/2025 11:16 AM CDT Encounter for screening mammogram for breast cancer from Last 3 Months Results * MAMMO 3D MARY DIAGNOSTIC UNI LT W OR WO CAD (02/02/2025 2:00 PM CDT) Anatomical Region Laterality Modality Breast Left Mammography 02/02/2025 2:01 PM CDT Impressions 02/02/2025 2:07 PM CDT IMPRESSION: 1. The changes seen on the screening mammogram appear to correlate with the patient's previous excisional biopsy site. No concerning abnormality identified. OVERALL FINAL ASSESSMENT: BI-RADS CATEGORY 2: Benign findings. RECOMMENDATION: 1. Recommend annual mammography with tomosynthesis. DICTATION LOCATION: Janessa Moya Narrative 02/02/2025 2:07 PM CDT LEFT DIAGNOSTIC DIGITAL MAMMOGRAM WITH TOMOSYNTHESIS AND CAD DATE: 02/02/2025 2:00 PM HISTORY: History of abnormal screening study COMPARISON: Studies dating back to 2009. TECHNIQUE: Digital diagnostic mammogram of the left breast was performed on a digital system. 3D image acquisitions were also obtained of the left breast. CAD was utilized. BREAST COMPOSITION: There are scattered areas of fibroglandular density. FINDINGS: Expected postsurgical changes related to an excisional biopsy within the superior left breast. No concerning masses, calcifications or distortion. Janinajanae Perea [facility] MAMMO ORDERABLES Final Result * MAMMO 3D MARY SCREEN BILAT W OR WO CAD (01/17/2025 11:16 AM CDT) Anatomical Region Laterality Modality Breast Bilateral Mammography 01/17/2025 11:1 6 AM CDT Impressions 01/17/2025 11:31 AM CDT IMPRESSION: Potential left breast distortion. Left diagnostic mammography and possible ultrasound recommended. OVERALL FINAL ASSESSMENT: BI-RADS CATEGORY 0: Incomplete, need additional imaging evaluation. DICTATION LOCATION: Janessa Moya Narrative 01/17/2025 11:31 AM CDT BILATERAL SCREENING DIGITAL [...] Final Result from Last [address] [facility] PPO MCR Care Teams Tax Record Clerk Relationship Specialty Start Date End Date Don Reina MD [address] [place] [address] PCP - General 06/05/08
--- OUTSIDE RECORDS SUMMARY | 2025-03-27 00:27 | XMS_ITS | Encounter Summary ---
Author Organization [employer] Address [address] [place] [address] Care Team Providers Care Clinical Technologist Name Role Phone Don Reina MD Primary Care Provider [phone] Encounter Details Date Type Department Care Team (Late st Contact Info) Description 06/02/2003 Outpatient Historical [facility] Support Serv. (Adt Cardiology-[facility]) [address] [place] [address] Sang Ruiz MD NO ADDRESS ON FILE Social History Tobacco Use Types Packs/Day Years Used Date Smoking Tobacco: Never Assessed Comments Unknown Sex and Gender Information Value Date Recorded Sex Assigned at Not on file Legal Sex Female 3:03 AM FINANCIAL SERVICES REP Gender Identity Not on file Sexual Orientation Not on file documented as of this encounter Plan of Treatment Not on file documented as of this encounter Visit Diagnoses Not on filedocumented in this encounter Care Teams Clinical Technologist Relationship Specialty Start Date End Date Don Reina MD [address] [place] [address] PCP - General 06/05/08 documented as of this encounter
--- OUTSIDE RECORDS SUMMARY | 2025-03-27 00:27 | XMS_ITS | Encounter Summary ---
Author Organization [employer] Address [address] [place] [address] Care Team Providers Care Christian Counselor Name Role Phone Don Reina MD Primary Care Provider [phone] Encounter Details Date Type Department Care Team (Latest Contact Info) Description 03/02/2003 Outpatient Historical HIS CARDIOPULMONARY Rubio Gutierrez MD 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 [phone] PCP - General 06/05/08 documented as of this encounter
--- OUTSIDE RECORDS SUMMARY | 2025-03-27 00:27 | XMS_ITS | Encounter Summary ---
Author Organization [facility] Address 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 [id number] PCP - General 06/05/08 documented as of this encounter
--- OUTSIDE RECORDS SUMMARY | 2025-03-27 00:27 | XMS_ITS | Encounter Summary ---
Author Organization [facility] Address 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 Rubio Gutierrez MD [address] [place] [address] CHEST PAIN NOS (Primary Dx) Social History Tobacco Use Types Packs/Day Years Used Date Smoking Tobacco: Never Assessed Comments Unknown Sex and Gender Information Value Date Recorded Sex Assigned at Not on file 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 [id number] PCP - General 06/05/08 documented as of this encounter
--- OUTSIDE RECORDS SUMMARY | 2025-03-27 00:27 | XMS_ITS | Clinical Summary ---
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
--- OUTSIDE RECORDS SUMMARY | 2025-03-27 00:27 | XMS_ITS | Encounter Summary ---
Author Organization [facility] Address 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 [address] PCP - General 06/05/08 documented as of this encounter
--- OUTSIDE RECORDS SUMMARY | 2025-03-27 00:27 | XMS_ITS | Clinical Summary ---
Author Organization [facility] Address [address] [place] [address] Care Team Providers Care Double Bottom Driver Name Role Phone Don Reina MD Primary Care Provider [phone] Source Comments [facility],non-owned Affiliates and Associated Physician Practices is amultiple site organization consisting of ambulatory clinics and hospital sitesin [place], [place], [place] and [place]. This disclosure is being madepursuant to the Care Everywhere program and may not contain all information available regarding this patient. Last updated 18.[facility] Allergies Active Allergy Reactions Criticality Noted Date [...] 2008 ZOSTER VACCINE (1 of 2) 2008 DEPRESSION SCREENING 05/25/2024 COVID-19 VACCINE ( - 2023- season) 2025 INFLUENZA VACCINE (#1) 2025 MAMMOGRAM 10/01/2025 10/02/2023, [...] Insurance [employer] ADV PPO Care Teams Double Bottom Driver Relationship Specialty Start Date End Date Don Reina MD [address] [place] [address] PCP - General Family Medicine 12/31/22
[2025-03-27 07:48] VITALS: BP 105/39; PULSE 90; RESP 17; TEMP 36.4; O2SAT 100; BMI 22.3
[2025-03-27] MEDS: LACTATED RINGERS 1,000 ML 150 ML IV CONT (08:00)
[2025-03-27] MEDS: ONDANSETRON INJ 4 MG/2 ML VIAL IV PUSH (08:00)
--- NOTE | 2025-03-27 08:19 | WPDANESEPPF ---
Anes - Initial Pre Proc Eval Procedure: Operation Date: 03/27/25 08:30 Proposed Procedures p EGD & Diagnostic Colonoscopy - Sal Castrejon MD Date/Time: 03/27/25 08:19 Surgeon: Sal Castrejon MD Pre Op Diagnosis: Constipation, unspecified, GERD Patient Data Age: 64 Gender: F Height: 1.63 m Weight: 59 kg Last Vital Signs Temp 36.4 C 03/27/25 07:48 Pulse 90 03/27/25 07:48 Resp 17 03/27/25 07:48 BP 105/39 L 03/27/25 07:48 Pulse Ox 100 03/27/25 07:48 O2 Del Method Room Air 03/27/25 07:48 Allergies Allergy/AdvReac Type Severity Reaction Status Date / Time No Known Allergies Allergy Verified 03/27/25 07:45 Home Medications ?Medication ?Instructions ?Recorded ?Confirmed ?Type estradiol-norethindrone acet 0.5 1 tablet PO DAILY 12/21/19 03/27/25 History mg-0.1 mg tablet gabapentin 300 mg capsule 300 mg PO TID 02/18/21 03/27/25 History levothyroxine 50 mcg capsule 50 mcg PO .QD 07/21/22 03/27/25 History albuterol sulfate 90 mcg/actuation 2 puff inhalation Q4-6H PRN 03/27/24 03/21/25 Rx aerosol inhaler shortness of breath or wheezing 30 days #8.5 grams trospium 20 mg tablet 20 mg PO BID 03/27/24 03/27/25 History celecoxib 100 mg capsule (Celebrex) 100 mg PO BID #60 caps 03/16/25 03/27/25 Rx esomeprazole magnesium 40 mg 40 mg PO DAILY PRN heartburn 03/21/25 03/27/25 History capsule,delayed release (Nexium) Patient hx anesthesia problems: none Family hx anesthesia problems: none Results Review: All pre-operative results and documents have been reviewed as part of the pre-operative evaluation. [facility] Past Medical History Medical History Bilateral hand pain Sinusitis Bronchitis Cough present for greater than 3 weeks Right shoulder pain Hypothyroidism (acquired) Chronic pain Arthralgia Hair loss disorder Bone spur of foot Foot pain Piriformis syndrome of left side Tear of left acetabular labrum Bursitis of left hip Pain in left hip Dysphagia Arthritis Asthma Acute stress reaction GERD (gastroesophageal reflux disease) BMI 25.0-25.9,adult PONV (postoperative nausea and vomiting) Mitral valve regurgitation states had echo due to murmur. Unsure of severity but believes mild. Says she notices her heart rate rise as high as 140 on her apple watch and was told it was because of this. Essential tremor Family History Family History Other Carcinoma of colon Family history of hypercholesterolemia Family history of kidney disease Family history of lung cancer Family history of malignant neoplasm Family history of osteoporosis Social History Social History Smoking status: Never smoker Alcohol intake: current Drinks per week: 3 Substance use: never Substance use type: does not use Do You Feel Safe in your Home?: Yes Lack of Transportation: No Lack of Food: Never True Current Housing: I Have Housing Concerned About Future Housing: No Difficulty Paying Gas/Electric Bills: No Difficulty Paying for Meds: No Currently Unemployed: No Education: Trade/Vocational Certificate Difficulty w/ Childcare or Family Care: No Living arrangements: with family Occupation/Education: occupation 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[employer], 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 Informed Consent: The patient's anesthetic plan and its attendant risks and benefits were discussed with the patient/family/POA. Questions were solicited and answers provided to the satisfaction of the patient/family/POA.
--- NOTE | 2025-03-27 08:43 | PM.HPGS ---
History of Present Illness History of Present Illness Consent: Risks, benefits, and alternatives have been discussed and questions answered. Patient agrees to proceed with procedure. Chief complaint: Constipation, unspecified, GERD Narrative: Misty Hayward is a 64 year old female with h/o esophageal ring, she thinks that needs another egd because food hanging up in chest, also due to have another colonoscopy- last one 2017 and mother had colon cancer Review of Systems Review of Systems: All systems reviewed & are unremarkable except as noted in HPI and below PMFSH Past Medical History Medical History (Updated 03/27/25 @ 08:45 by Sal Castrejon MD) Dysphagia Family history of colon cancer in mother Bilateral hand pain Sinusitis Bronchitis Cough present for greater than 3 weeks Right shoulder pain Hypothyroidism (acquired) Chronic pain Arthralgia Hair loss disorder Bone spur of foot Foot pain Piriformis syndrome of left side Tear of left acetabular labrum Bursitis of left hip Pain in left hip Arthritis Asthma Acute stress reaction GERD (gastroesophageal reflux disease) BMI 25.0-25.9,adult PONV (postoperative nausea and vomiting) Mitral valve regurgitation states had echo due to murmur. Unsure of severity but believes mild. Says she notices her heart rate rise as high as 140 on her apple watch and was told it was because of this. Essential tremor Family History Family History Other Carcinoma of colon Family history of hypercholesterolemia Family history of kidney disease Family history of lung cancer Family history of malignant neoplasm Family history of osteoporosis Social History Social History Smoking status: Never smoker Alcohol intake: current Drinks per week: 3 Substance use: never Substance use type: does not use Do You Feel Safe in your Home?: Yes Lack of Transportation: No Lack of Food: Never True Current Housing: I Have Housing Concerned About Future Housing: No Difficulty Paying Gas/Electric Bills: No Difficulty Paying for Meds: No Currently Unemployed: No Education: Trade/Vocational Certificate Difficulty w/ Childcare or Family Care: No Living arrangements: with family Occupation/Education: occupation 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[employer], 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 Gender identity (if verbalized by the patient): Female Spiritual care concerns: No Meds Home Medications and Allergies Home Medications ?Medication ?Instructions ?Recorded ?Confirmed ?Type estradiol-norethindrone acet 0.5 1 tablet PO DAILY 12/21/19 03/27/25 History mg-0.1 mg tablet gabapentin 300 mg capsule 300 mg PO TID 02/18/21 03/27/25 History levothyroxine 50 mcg capsule 50 mcg PO .QD 07/21/22 03/27/25 History albuterol sulfate 90 mcg/actuation 2 puff inhalation Q4-6H PRN 03/27/24 03/21/25 Rx aerosol inhaler shortness of breath or wheezing 30 days #8.5 grams trospium 20 mg tablet 20 mg PO BID 03/27/24 03/27/25 History celecoxib 100 mg capsule (Celebrex) 100 mg PO BID #60 caps 03/16/25 03/27/25 Rx esomeprazole magnesium 40 mg 40 mg PO DAILY PRN heartburn 03/21/25 03/27/25 History capsule,delayed release (Nexium) Allergies Allergy/AdvReac Type Severity Reaction Status Date / Time No Known Allergies Allergy Verified 03/27/25 07:45 Vital Signs Vital Signs - 24 hr 03/27/25 07:48 Temperature 97.6 F Pulse Rate 90 Respiratory Rate 17 Blood Pressure 105/39 L Pulse Oximetry 100 Oxygen Delivery Room Air Exam Const: General: comfortable and no acute distress HENMT: Face/Nose/Sinus: Normal nares present Eyes: General: appearance normal, both eyes and all related structures Neck: Neck: no JVD Resp: Auscultation: clear to auscultation bilaterally Cardio: Rate: regular rate Rhythm: regular rhythm GI: Inspection: non-distended GI Palp: Yes Soft to palpation Skin: General skin exam: normal color Extrem: General: normal to inspection Psych: Mental Status: mental status grossly normal Assessment and Plan Assessment and plan (1) Family history of colon cancer in mother: Code(s): Z80.0 - Family history of malignant neoplasm of digestive organs Status: Acute Assessment and Plan: colonoscopy (2) Dysphagia: Code(s): R13.10 - Dysphagia, unspecified Status: Acute Assessment and Plan: egd
--- NOTE | 2025-03-27 09:02 | SUR.OPER ---
EGD end 858 COLONOSCOPY START 903
--- NOTE | 2025-03-27 09:15 | S_PTH ---
PATIENT: Misty Hayward LOC: [facility]#:[id number] AGE/SX: 64/F ROOM: RE03/27/[address]: Sal Castrejon MD : 1960 BED: DIS: 03/27/2025 SPEC #: [id number] RECD: 03/27/25 10:58 STATUS: JUDSON REYazmin #: [id number] MARINE: 03/27/25 09:[address]: Sal Castrejon DEPT: [facility] Surgical RECD BY: Shawna Mitchell ENTERED: 03/27/25 10:59 SP TYPE: Surgical OTHR DR: Don Reina MD Tissues: A - Colon Polypectomy B - Colon Polypectomy Procedures: Hematoxylin and Eosin Stain Gross and Microscopic Level 4
[2025-03-27 09:20] VITALS: BP 82/51; PULSE 88; RESP 18; O2SAT 97
[2025-03-27 09:30] VITALS: BP 94/57; PULSE 78; RESP 21; O2SAT 100
[2025-03-27 09:40] VITALS: BP 100/55; PULSE 76; RESP 22; O2SAT 100
== END 2025-03-27 09:53 | disposition home or self-care (01) ==
PROVIDERS: PCP Family Medicine; Referring Provider Physician Assistant Medical; Visit Provider Internal Medicine Gastroenterology
PROC: 0DJ08ZZ Inspection of Upper Intestinal Tract, Via Natural or Artificial Opening Endoscopic (ICD-10-PCS; CPT 45378; principal; 2025-03-27 08:30)
DX: Z12.11 Encounter for screening for malignant neoplasm of colon (principal); D12.5 Benign neoplasm of sigmoid colon; K63.5 Polyp of colon; K57.30 Diverticulosis of large intestine without perforation or abscess without bleeding; K64.8 Other hemorrhoids; Z80.0 Family history of malignant neoplasm of digestive organs; K22.2 Esophageal obstruction; K44.9 Diaphragmatic hernia without obstruction or gangrene
CPT/HCPCS: 45385; 43249; 88305; C1726; J2003; J2405; J2704; J7120